=== PATIENT | female | born 1965 | race Caucasian/White ===

== ENCOUNTER 2017-01-31 19:29 | Inpatient (IN) | payer MEDICAID ==
[2016-05-15 14:09] VITALS: Ht 157.5 cm; Wt 47.8 kg
[~2017-01-31] VITALS: Ht 157.5 cm; Wt 47.8 kg
[~2017-01-31 19:29] MED LIST: ASPI-1063 PO; COR25 PO; DIVA250T PO; FURO20TA4 PO; HYDR-4039 PO; LURA40TA PO; METO-442 PO; NIFE60TA7 PO; NOR10 PO; QUET200T PO; RISP1TAB27 PO; SPIR25TA4 PO; TRAZ-126 PO; ZIPR20CA2 PO
[2017-01-31 19:30] VITALS: BP 240/154; PULSE 95; RESP 18; TEMP 97.1; O2SAT 99
--- NOTE | 2017-01-31 19:30 | NUR ---
Arrived via [facility] for HTN 218/146, SAL 8/10, vomiting x 3, diarrhea x 3, epigastric pain, bilat flank pain. Patient has been on a medication vacation for the last week because she did not care, "I didn't realize how sick I could get or that I could ." Placed in room 2 . Placed on management assistant, blood pressure machine and pulse oximeter. To gown for exam. Side rails up. Report given to Lora GARCIA.
--- NOTE | 2017-01-31 19:30 | NUR ---
Patient to ER bed 2 to gown for evaluation. Side rails up. Report given to Becky GARCIA.
--- NOTE | 2017-01-31 19:35 | NUR ---
Pt c/o 08/12 headache and "kidney pain" that radiates to the back. BP also also elevated (SBP >200). Pt noncompliant w all meds x1 week (pt supposed to be taking x4 BP meds at home). Pt also has hx of pysch issues. No acute distress noted at this time. Respirations even and unlabored. Will continue to monitor
--- NOTE | 2017-01-31 19:43 | NUR ---
ER MD Cespedes at bedside for evaluation
[2017-01-31] MEDS ORDERED: METOPROLOL TARTRATE 5 MG/5 ML VIAL IVP ONE ×3 (20:00→21:45)
[2017-01-31] MEDS ORDERED: LORazepam 2 MG/ML VIAL (FOR ER USE) IVP ONE ×2 (20:00→20:45)
[2017-01-31] MEDS ORDERED: NITROGLYCERIN 1 INCH (GM) OINT. TD ONE (20:00)
[2017-01-31] MEDS ORDERED: NITROGLYCERIN 0.4 MG TAB.SUBL SL ONE (20:00)
--- NOTE | 2017-01-31 20:00 | NUR ---
Pt refusing to give urine sample at this time.
--- NOTE | 2017-01-31 20:17 | NUR ---
Operations Superintendent at bedside for bleed draw. Patient identified x2
--- NOTE | 2017-01-31 20:20 | NUR ---
# 24 gauge angiocath placed to L hand. Use of asceptic technique. Opsite placed over site. Blood return noted. Blood for lab drawn from site. Flushed with 10 cc of normal saline. No evidence of infiltration noted. Patient tolerated well.
[2017-01-31 20:28] LABS: BASOPHILS # (AUTO) 0.1 K/uL (0.0-0.2); BASOPHILS % (AUTO) 1.7 % (0.0-2.0); EOSINOPHILS # (AUTO) 0.1 K/uL (0.0-0.4); EOSINOPHILS % (AUTO) 1.7 % (0.0-4.0); HEMATOCRIT 37.4 % (36-48); HEMOGLOBIN 12.7 g/dL (12.0-16.0); LYMPHOCYTES # (AUTO) 1.7 K/uL (1.0-5.5); LYMPHOCYTES % (AUTO) 25.2 % (20.5-51.5); MEAN CORPUSCULAR HEMOGLOBIN 28 pg (27-31); MEAN CORPUSCULAR HGB CONC 34 % (32-36); MEAN CORPUSCULAR VOLUME 81 fL (79.0-98.0); MONOCYTES # (AUTO) 0.3 K/uL (0.0-1.0); MONOCYTES % (AUTO) 4.9 % (1.7-9.3); NEUTROPHILS # (AUTO) 4.6 K/uL (1.8-7.7); NEUTROPHILS % (AUTO) 66.5 % (40.0-70.0); PLATELET COUNT (AUTO) 192 K/uL (130-430); RED BLOOD CELL COUNT(AUTO) 4.63 MIL/uL (4.2-6.2); RED CELL DISTRIBUTION WIDTH 15.4 % (9.0-15.0); WHITE BLOOD COUNT (AUTO) 6.8 K/uL (4.8-10.8)
[2017-01-31] MEDS ORDERED: VALSARTAN 80 MG TABLET (DIOVAN) PO ONE (20:45)
--- NOTE | 2017-01-31 20:50 | NUR ---
Medication reconciliation - patient states "i am no longer taking any medication" medication list already in computer has not been reconciled.
[2017-01-31] MEDS ORDERED: hydrALAZINE HCL 25 MG TABLET PO ONE (21:00)
[2017-01-31] MEDS ORDERED: hydrALAZINE HCL 25 MG TABLET ONE (21:14)
[2017-01-31] MEDS ORDERED: ZIPRASIDONE HCL 20 MG CAPSULE (GEODON) PO ONE (21:15)
[2017-01-31] MEDS ORDERED: risperiDONE 1 MG TABLET (RisperDAL) PO ONE (21:15)
[2017-01-31] MEDS ORDERED: traZODone HCL 50 MG TABLET (DESYREL) PO ONE (21:15)
[2017-01-31 21:18] LABS: CALCIUM 8.7 mg/dL (8.4-11.0); CREATININE 3.64 mg/dL (0.55-1.30); PROTHROMBIN TIME 10.5 SECS (9.5-12.5)
[2017-01-31 21:23] LABS: ALBUMIN 3.7 g/dL (3.4-4.8); TOTAL BILIRUBIN 0.8 mg/dL (0.0-1.0); TOTAL PROTEIN, SERUM 7.5 g/dL (6.4-8.3)
[2017-01-31] MEDS ORDERED: risperiDONE 1 MG TABLET (RisperDAL) ONE (21:28)
[2017-01-31] MEDS ORDERED: traZODone HCL 50 MG TABLET (DESYREL) ONE (21:29)
[2017-01-31] MEDS ORDERED: ZIPRASIDONE HCL 20 MG CAPSULE (GEODON) ONE (21:30)
[2017-01-31] MEDS ORDERED: ASPIRIN 81 MG TAB.CHEW PO ONE (21:45)
[2017-01-31] MEDS ORDERED: hydrALAZINE HCL 20 MG/ML VIAL IVP PRN (21:45)
--- NOTE | 2017-01-31 21:45 | NUR ---
Aspirin being held pending CT results.
--- NOTE | 2017-01-31 21:45 | NUR ---
Transfer to Tele Ob on hold due to increased bp. (182/123). Will continue to monitor
--- NOTE | 2017-01-31 22:15 | NUR ---
Critical lab value for troponin received. Dr Moreno notified, new orders received. Will carry out
--- NOTE | 2017-01-31 22:30 | NUR ---
Pt BP decreased, 154/100. notified, okay to transfer to Tele.
--- NOTE | 2017-01-31 22:40 | NUR ---
Patient will be admitted to care of Dr Moreno. Admitted to tele ob unit. Will go to room 126A. Summary report printed. Report given to RN. Shireen.
--- NOTE | 2017-01-31 22:43 | NUR ---
ADMISSION NOTE Received patient from ER via [facility], received report from ashlyn GARCIA given to yon GARCIA. Patient admitted with diagnosis of hypertensive emergency. Patient oriented to hospital routine, call light, toileting and safety-patient verbalized understanding.
[2017-01-31 22:46] VITALS: BP 158/100; PULSE 82; RESP 18; TEMP 97.5; O2SAT 100
--- NOTE | 2017-01-31 22:55 | NUR ---
received call from radiology. CT shows small hemorrhage, Josh also present and updated re results. New orders obtained. RADHA Iyer updated re results and new orders.
--- NOTE | 2017-01-31 23:14 | NUR ---
Consult Called Reason for consultation: Brain Hemorrhage Was consult called: Yes Person who was notified: Ashvin Consulting Physician: Mal Lima MD Conference Coordinator Specialty: Neurosurgeon Conference Coordinator Order by: Dr. Moreno
[2017-01-31] MEDS ORDERED: cloNIDine HCL 0.1 MG TABLET PO PRN (23:15)
--- NOTE | 2017-01-31 23:15 | NUR ---
Initial note A/Ox 3, sleepy but arousable, no SOB, no chest pain, c/o headache. Skin warm to touch, IV #24 at L hand, patent and free of infection or infiltration. Clear lung sound and active bowel sounds, last BM was 01/30/2017 per patient. +2 radial and pedal pulses. Informed patient to use call light for any concern or question, also use call light for bathroom. Patient is aware of urine collection. Call light within reach, bed at lowest position, bed alarm on, will continue to monitor patient.
--- NOTE | 2017-01-31 23:20 | NUR ---
Consult Called Reason for consultation: Hemorrhage ct-head Was consult called: yes Person who was notified: Pat Consulting Physician: Resendez Mohsen MD Vocational Education Professional Specialty Neurology Vocational Education Professional Phone number: [phone] Order by Efrem Montejo MD
--- NOTE | 2017-01-31 23:30 | NUR ---
MD rounds Dr. Moreno came and gave some order, order carried out Tylenol 650 mg PO Q6H PRN for mild pain and fever. Catapres 0.1 mg PO Q6H PRN for SBP >140/90 Neuro check Q2H x 4 and then Q4H Neurologist consult Neurosurgeon consult
--- NOTE | 2017-01-31 23:56 | NUR ---
Consult called Reason for consultation: psych hx, noncompliant w meds Was consult called: yes Person who was notified: Keyla Consulting Physician: Marc Hernández Md (Pratima denial resolution specialist) Consulting Specialty Psych Order by Dr. Moreno Addendum: 02/01/17 at 0039 by Viri Hurtado AK/ Tsering Tiwari denial resolution specialist.
[2017-02-01] VITALS: BP 155/108; PULSE 83; RESP 16; TEMP 97.6; O2SAT 100
--- NOTE | 2017-02-01 00:01 | NUR ---
Consult Called Reason for Consultation: hypertension Person who was notified: Keyla Consulting Physician: Alejandro Murray MD (Dr. Camacho precision devices inspector/tester) Exhibit Cleaner Specialty: Cardio Exhibit Cleaner Order by Dr. KAPOOR
--- NOTE | 2017-02-01 00:30 | NUR ---
Rounds A/O x 3, very sleepy but arousable, no SOB, no chest pain, no grimacing. VS 97.6 F, 83, 16, 155/108. Able to follow commands and move all extremities. LEILA, IV #24 at L hand, patent and free of infection or infiltration. Skin warm to touch. +2 radial and pedal pulses. Call light within reach, bed at lowest position, bed alarm on, will continue to monitor patient.
--- NOTE | 2017-02-01 00:40 | NUR ---
Catapres given due to BP 155/108
--- NOTE | 2017-02-01 01:27 | NUR ---
Call Dr. Moreno Verified with Josh that patient is Tele patient. Dr. Moreno is aware that patient had small hemorrhage in the head, and ordered neurocheck Q2 hours x 4 and then Q4 hours
--- NOTE | 2017-02-01 01:38 | NUR ---
Pharmacy called According to pharmacy, Lovenox should be given 50 mg daily, not as ordered 60 mg BID. Will endorse to morning shift to verify the Lovenox order because patient had small hemorrhage in the head.
--- NOTE | 2017-02-01 02:20 | NUR ---
Rounds Sleeping but arousable, no SOB, no chest pain, no grimacing. BP 144/88. LEILA, IV #24 at L hand. Skin warm to touch. Call light within reach, bed at lowest position, bed alarm on, will continue to monitor patient.
--- NOTE | 2017-02-01 04:32 | NUR ---
Rounds Sleeping but arousable, no SOB, no chest pain, no grimacing. BP 161/107. Hydralazine IVP given. LEILA, IV #24 at L hand. Skin warm to touch. Call light within reach, bed at lowest position, bed alarm on, will continue to monitor patient.
[2017-02-01 05:15] VITALS: BP 147/88; PULSE 78; RESP 19; TEMP 98; O2SAT 99
--- NOTE | 2017-02-01 05:25 | NUR ---
Recheck BP Patient sleeping. No SOB, no chest pain, no grimacing. BP was 147/88
--- NOTE | 2017-02-01 06:10 | NUR ---
Closing note Sleeping but arousable, no SOB, no chest pain, no grimacing. LEILA, IV #24 at L hand. Skin warm to touch. Call light within reach, bed at lowest position, bed alarm on, will give report to incoming nurse regarding verify Lovenox order and urine collection.
--- NOTE | 2017-02-01 07:30 | NUR ---
MD rounds Verified with Dr. Moreno regarding Lovenox order. Dr. Moreno DC this med.
--- NOTE | 2017-02-01 08:00 | NUR ---
AM Initial Notes Pt sound asleep. Tried to awaken by shaking but became upset and doesn't want to be bothered. States "I want to sleep. I didn't get enough rest." Encouraged to eat breakfast but sates she will eat later. No complaints of pain or discomfort. No distress noted. Call light within reach. will monitor.
[2017-02-01 08:48] VITALS: BP 151/99; PULSE 78; RESP 20; TEMP 98.5; O2SAT 99
[2017-02-01] MEDS ORDERED: ENOXAPARIN SODIUM 60 MG/0.6 ML SYRINGE SUBCUT SCH (09:00)
[2017-02-01] MEDS ORDERED: hydrALAZINE HCL 25 MG TABLET PO SCH (09:00)
[2017-02-01] MEDS ORDERED: METOPROLOL TARTRATE 50 MG TABLET PO SCH (09:00)
--- NOTE | 2017-02-01 09:00 | NUR ---
Pt still sound asleep. Will continue to monitor.
--- NOTE | 2017-02-01 10:00 | NUR ---
Rounds Pt is wide awake, alert and oriented X3 with episodes of forgetfulness. Complaints of mild headache but refused medication. No distress noted. Educated about fall and safety precautions. Encouraged to call for assistance. Call light within reach. Will monitor.
[2017-02-01] MEDS: SPIRONOLACTONE 25 MG TABLET (ALDACTONE) PO SCH ×3 (10:03→21:24)
[2017-02-01] MEDS: amLODIPine BESYLATE 10 MG TABLET PO SCH (10:04)
[2017-02-01] MEDS: FUROSEMIDE 20 MG TABLET PO SCH (10:04)
[2017-02-01] MEDS: risperiDONE 1 MG TABLET (RisperDAL) PO SCH ×2 (10:04→21:23)
[2017-02-01] MEDS: CARVEDILOL 25 MG TABLET (COREG) PO SCH ×2 (10:05→21:24)
[2017-02-01] MEDS: ZIPRASIDONE HCL 20 MG CAPSULE (GEODON) PO SCH ×2 (10:05→21:23)
[2017-02-01] MEDS: DIVALPROEX SODIUM 250 MG TAB.SR.24H (DEPAKOTE ER) PO SCH ×2 (10:06→21:25)
--- NOTE | 2017-02-01 11:00 | NUR ---
Dr. Terri HIGGINS inside room trying to assess patient. Pt is asleep but awakened by shaking. Refused to be bothered and went back to sleep.
[2017-02-01 11:31] VITALS: BP 115/70; PULSE 83; RESP 18; TEMP 98.3; O2SAT 98
--- NOTE | 2017-02-01 12:15 | NUR ---
Rounds Pt wide awake, conversing well while eating lunch. No complaints of pain or discomfort at this time. No distress noted. Encouraged to call for assistance. Call light within reach. Will monitor.
--- NOTE | 2017-02-01 12:30 | NUR ---
Dr. Terri HIGGINS inside room assessing patient. Pt wide awake and eating lunch.
--- NOTE | 2017-02-01 12:35 | NUR ---
Additional notes Pt just seen by Dr. Murray eating very well independently. MD states that patient is wide awake and seems back to normal compared to how she was earlier when he saw her sound asleep.
--- NOTE | 2017-02-01 13:30 | NUR ---
Dr. Harper Neurologist inside room assessing patient. Pt appears to be lethargic. Plan of care discussed with patient.
--- NOTE | 2017-02-01 14:30 | NUR ---
Sound asleep Pt sound asleep. No signs of facial grimacing for pain or discomfort. No distress noted. Call light within reach. Will monitor.
[2017-02-01 15:01] LABS: CREATININE 4.03 mg/dL (0.55-1.30); POTASSIUM 5.1 mmol/L (3.5-5.1); THYROID STIMULATING HORMONE 1.59 uIu/mL (0.34-4.82)
[2017-02-01 15:17] LABS: CALCIUM 7.8 mg/dL (8.4-10.2)
--- NOTE | 2017-02-01 16:24 | NUR ---
Rounds Pt asleep but awakened by shaking for medication administration. Pt got upset because she cannot get enough sleep. Also states her sleep is always interrupted. No complaints of pain or discomfort. No distress noted. Encouraged to call for assistance. will monitor.
[2017-02-01 16:35] VITALS: BP 119/79; PULSE 75; RESP 18; TEMP 97.1
--- NOTE | 2017-02-01 18:45 | NUR ---
Closing notes Pt sound asleep. No significant changes noted. Will endorse care to incoming nurse.
[2017-02-01 19:35] VITALS: BP 142/90; PULSE 79; RESP 18; TEMP 99; O2SAT 98
--- NOTE | 2017-02-01 19:35 | NUR ---
Initial Notes Pt is sleeping, easily arousable. Pt is A/OX4. Pt denies any headache or discomfort at this time. Plan of care discussed with pt, pt verbalized understanding. VSS. IV intact. Pt given snacks, pudding x2. IV to left hand #24g noted, saline lock. Breathing is even and unlabored. Pt educated phone technician light and correct back demonstration noted. Safety precautions in place, side rails up x3, with bed in lowest, locked position, bed alarm on at all times. All needs met at this time. Call light in hand. Will continue to monitor.
[2017-02-01] MEDS ORDERED: NON-FORMULARY MEDICATION (Lurasidone Hcl (Latuda) 40 MG) PO SCH (21:00)
[2017-02-01] MEDS ORDERED: traZODone HCL 50 MG TABLET (DESYREL) PO SCH (21:00)
--- NOTE | 2017-02-01 21:25 | NUR ---
Rounds All scheduled medications discussed and reviewed with pt. Pt agreed with all scheduled medications for tonight. Pt asked to call nurse when she needs to use restroom, and informed that urine sample needed. All needs met at this time. Call light in hand. Will continue to monitor.
[2017-02-01] MEDS: ACETAMINOPHEN 325 MG TABLET PO PRN (21:26)
[2017-02-02] VITALS (7 sets, daily range): BP systolic 126–161; BP diastolic 73–96; PULSE 70–82; RESP 16–18; TEMP 97–99.2; O2SAT 95–100
--- NOTE | 2017-02-02 00:20 | NUR ---
PATIENT RESTING: Patient resting quietly. No acute distress noted. Vital signs within normal range. Call light in hand. Will continue to monitor.
--- NOTE | 2017-02-02 02:49 | NUR ---
Rounds Pt is sleeping at this time, easily arousable. No acute distress or sob noted. Call light in hand. Will continue to monitor.
--- NOTE | 2017-02-02 05:02 | NUR ---
Rounds Pt is sleeping comfortably at this time. No acute distress noted. Call light in reach. Will continue to monitor.
--- NOTE | 2017-02-02 06:03 | NUR ---
Consult Follow up Called Mal Martin MD, (Eugene HIGGINS senior safety management consultant) for brain hemorrhage, spoke with Yesenia.
--- NOTE | 2017-02-02 06:07 | NUR ---
Consult follow up Paged consult for psych hx, noncompliant w meds, Dr Chen balloon dipper, spoke with Azalia.
--- NOTE | 2017-02-02 06:17 | NUR ---
Spoke with MD Knight (Neurosurgery) Spoke with MD Knight covering for Janie, and per there is nothing we can do for a brain hemorrhage and that she had already spoken with the Nurse yesterday.
--- NOTE | 2017-02-02 06:44 | NUR ---
Closing Notes Pt is sleeping comfortably at this time. No acute distress or sob noted. Pt in stable condition. VSS. IV intact. All needs met throughout shift. Will endorse care to am nurse. Call light in reach. Will continue to monitor.
--- NOTE | 2017-02-02 08:00 | NUR ---
AM Initial Notes Pt aaox3 with no complaints of headache pain or discomfort. No distress noted. States "I feel depressed and tired and just want to sleep after eating." clinical research monitor in place. Educated about fall and safety precautions. Encouraged to call for assistance. Call light within reach. Will monitor.
--- NOTE | 2017-02-02 08:15 | NUR ---
Dr. Josh HIGGINS doing rounds. Plan of care discussed with patient.
--- NOTE | 2017-02-02 08:16 | NUR ---
CALLED NEUROSURGEON DR GUZMAN, DR GOOD POUND ATTENDANT, RE: CEREBRAL HEMORRHAGE. SPOKE TO CHAGO
--- NOTE | 2017-02-02 08:22 | NUR ---
Dr. Hernández Called and spoke with for consult. MD states he will come and see the patient today.
[2017-02-02] MEDS: DIVALPROEX SODIUM 250 MG TAB.SR.24H (DEPAKOTE ER) PO SCH ×2 (08:30→20:03)
[2017-02-02] MEDS: ZIPRASIDONE HCL 20 MG CAPSULE (GEODON) PO SCH (08:31)
[2017-02-02] MEDS: FUROSEMIDE 20 MG TABLET PO SCH (08:32)
[2017-02-02] MEDS: SPIRONOLACTONE 25 MG TABLET (ALDACTONE) PO SCH ×3 (08:32→20:02)
[2017-02-02] MEDS: risperiDONE 1 MG TABLET (RisperDAL) PO SCH ×2 (08:32→20:02)
[2017-02-02] MEDS: CARVEDILOL 25 MG TABLET (COREG) PO SCH ×2 (08:33→20:02)
[2017-02-02] MEDS: amLODIPine BESYLATE 10 MG TABLET PO SCH (08:33)
--- NOTE | 2017-02-02 08:42 | NUR ---
Dr. Meredith HIGGINS doing rounds. Plan of care discussed with patient.
--- NOTE | 2017-02-02 10:00 | NUR ---
Rounds Pt awake resting in bed. No significant changes noted. Encouraged to call for assistance. Call light within reach. Will monitor.
--- NOTE | 2017-02-02 12:00 | NUR ---
Lunch Pt eating lunch. No complaints of headache or other pain and discomfort at this time. No distress noted. Encouraged to call for assistance. Call light within reach. Will monitor.
--- NOTE | 2017-02-02 14:00 | NUR ---
Rounds Pt sound asleep. No significant changes noted. Call light within reach. Will monitor.
--- NOTE | 2017-02-02 16:00 | NUR ---
Rounds Pt awake resting in bed with grand daughter at bedside. No significant changes noted. Kept comfortable. Encouraged to call for assistance. Will continue to monitor.
[2017-02-02 17:16] LABS: METHAMPHETAMINES SCREEN,URINE POSITIVE (NEG <=500)
[2017-02-02 17:17] LABS: BARBITURATE, URINE NEGATIVE (NEG <=200); BENZODIAZEPINE, URINE POSITIVE (NEG <=150); CANNABINOID, URINE NEGATIVE (NEG <=50); COCAINE, URINE NEGATIVE (NEG <=150); OPIATE, URINE NEGATIVE (NEG <=100); PHENCYCLIDINE SCREEN,URINE NEGATIVE (NEG <=25); UR TRICYCLIC ANTIDEPRESSANTS NEGATIVE (NEG <=300); URINE AMPHETAMINE POSITIVE (NEG <=500); URINE METHADONE NEGATIVE (NEG <=200); URINE OXYCODONE SCREEN NEGATIVE (NEG <=100); URINE PROPOXYPHENE SCREEN NEGATIVE (NEG <=300)
--- NOTE | 2017-02-02 19:35 | NUR ---
Initial Notes Pt is awake, sitting up in bed watching TV. Pt is A/OX4. Pt c/o mild headache, will medicate for pain as ordered. Plan of care discussed with pt, pt verbalized understanding. Pt informed of planned MRI for tomorrow but patient stated she did not want to have the MRI and just wants to go home. VSS. IV intact. Pt given snacks, pudding x2. IV to left hand #24g noted, saline lock. Breathing is even and unlabored. Pt educated educational sign language interpreter light and correct back demonstration noted. Safety precautions in place, side rails up x3, with bed in lowest, locked position, bed alarm on at all times. All needs met at this time. Call light in hand. Will continue to monitor.
[2017-02-02] MEDS: traZODone HCL 50 MG TABLET (DESYREL) PO SCH (20:02)
[2017-02-02] MEDS: ACETAMINOPHEN 325 MG TABLET PO PRN (20:04)
--- NOTE | 2017-02-02 23:50 | NUR ---
Rounds Pt is sleeping at this time, easily arousable. No acute distress or sob noted. Call light in hand. Will continue to monitor.
--- NOTE | 2017-02-03 01:37 | NUR ---
Rounds Pt is sleeping at this time, easily arousable. No acute distress or sob noted. Call light in hand. Will continue to monitor.
[2017-02-03 04:01] VITALS: BP 135/93; PULSE 74; RESP 16; TEMP 97.6; O2SAT 98
--- NOTE | 2017-02-03 04:35 | NUR ---
PATIENT RESTING: Patient resting quietly. No acute distress noted. Vital signs within normal range. Call light in reach. Will continue to monitor.
[2017-02-03 08:00] VITALS: BP 137/95; PULSE 63; RESP 16; TEMP 97.3; O2SAT 99
--- NOTE | 2017-02-03 08:00 | NUR ---
INITIAL ROUNDS Received pt AAOx4, no s/s resp distress, no c/o pain or discomfort. Neuro check completed and intact, pt ambulatory with steady gait when walked to bathroom. Plan of care for the day reviewed with pt-pt verbalized her understanding and wants to go home. Discussed need for MRI today and procedure-pt stated she will do the MRI-per shift report pt was refusing MRI. Pain management, disease process, skin and safety discussed-teach back done. Contact phone explained, call light within reach.
[2017-02-03] MEDS: ZIPRASIDONE HCL 20 MG CAPSULE (GEODON) PO SCH (08:39)
[2017-02-03] MEDS: CARVEDILOL 25 MG TABLET (COREG) PO SCH ×2 (08:39→20:19)
[2017-02-03] MEDS: SPIRONOLACTONE 25 MG TABLET (ALDACTONE) PO SCH ×3 (08:40→20:18)
[2017-02-03] MEDS: amLODIPine BESYLATE 10 MG TABLET PO SCH (08:40)
[2017-02-03] MEDS: DIVALPROEX SODIUM 250 MG TAB.SR.24H (DEPAKOTE ER) PO SCH ×2 (08:40→20:17)
[2017-02-03] MEDS: FUROSEMIDE 20 MG TABLET PO SCH (08:41)
--- NOTE | 2017-02-03 09:43 | NUR ---
REFUSED MRI Need for MRI and procedure explained by both this RN and the electronic calibration technician-pt still refused. Will inform .
[2017-02-03 12:00] VITALS: BP 130/78; PULSE 74; RESP 18; TEMP 98.6; O2SAT 98
--- NOTE | 2017-02-03 12:30 | NUR ---
MD ALMARAZ-AMA Pt is demanding to be discharged. Pt informed that the doctor wanted her to see a Customer Account Coordinator-pt stated "no, I want to leave. Dr. Sb almaraz, awaiting call back.
--- NOTE | 2017-02-03 12:49 | NUR ---
SPOKE WITH MD Dr. Basurto informed that pt just came up to nursing station and demanded to leave and stated she wants to go home against medical advise. stated to tell her he does not recommend her leaving.
--- NOTE | 2017-02-03 14:05 | NUR ---
ROUNDS/STAYING Pt decided to stay and get the tests done. Will inform MD. Pt with no s/s resp distress, no c/o pain or discomfort. Pt ambulating in the hallway. Pt given vanilla pudding per request. Needs met, call light within reach.
[2017-02-03 16:00] VITALS: BP 146/76; PULSE 76; RESP 18; TEMP 97.5; O2SAT 98
--- NOTE | 2017-02-03 16:40 | NUR ---
RAIZA/ Pt resting quietly in bed with no c/o headache or dizziness. Neuro checks intact. Pt's BP elevated-pt given BP medication as ordered. Dr. Basurto informed that pt is now agreeable to the MRI-order for tomorrow given.
--- NOTE | 2017-02-03 18:30 | NUR ---
CLOSING ROUNDS Pt resting quietly in bed with no s/s resp distress, no c/o headache or dizziness, no c/o pain or discomfort. Pt seen by Dr. Sellers-he stated that the pt will have to set up hemodialysis as an outpatient. Needs met, call light within reach.
[2017-02-03 20:00] VITALS: BP 154/100; PULSE 76; RESP 18; TEMP 98; O2SAT 98
--- NOTE | 2017-02-03 20:00 | NUR ---
Initial note Lying in bed awake, alert & oriented x 4. Denies pain or discomfort. Left hand IV access intact & patent. Able to ambulate without assist. Instructed on use of call light & to notify staff if in need of assistance. Verbalized understanding. Call light within reach.
[2017-02-03] MEDS: traZODone HCL 50 MG TABLET (DESYREL) PO SCH (20:19)
[2017-02-03] MEDS: risperiDONE 1 MG TABLET (RisperDAL) PO SCH (20:19)
[2017-02-03] MEDS: ACETAMINOPHEN 325 MG TABLET PO PRN (20:19)
--- NOTE | 2017-02-03 20:21 | NUR ---
Medications Due po medications given as ordered. Tolerated well.
--- NOTE | 2017-02-03 20:22 | NUR ---
Pain C/o headache rated 3/10. Tylenol po given as ordered.
--- NOTE | 2017-02-03 21:43 | NUR ---
MD ALMARAZ CALLED [facility] AT SPOKE WITH DR.JANDIAL HUDSON [facility] HE[facility] WORKER.
--- NOTE | 2017-02-03 21:48 | NUR ---
Sleep medication Requested sleeping pill. Explained medications administered earlier will make her sleepy, stated it doesn't. paged, Dr. patiño called back with new order given. Will medicate as ordered.
[2017-02-03 23:40] VITALS: BP 137/86; PULSE 69; RESP 18; TEMP 98.2
[2017-02-03] MEDS ORDERED: TEMAZEPAM 15 MG CAPSULE ONE (23:40)
--- NOTE | 2017-02-04 01:00 | NUR ---
Rounds Resting quietly with eyes closed. No c/o pain or discomfort. Call light within reach.
--- NOTE | 2017-02-04 02:49 | NUR ---
Rounds Used call light to ask for orange juice. [place] juice given. Went back to sleep.
--- NOTE | 2017-02-04 07:00 | NUR ---
Closing note Resting in bed awake, alert & oriented x 4. No c/o pain or discomfort. Ambulated in hallway with steady gait. Reminded of MRI and stated she was willing to do it. Call light within reach. Will give report to RADHA Allen via [employer] method.
--- NOTE | 2017-02-04 07:47 | NUR ---
OPENING NOTE REPORT RECEIVED FROM RADHA FRENCH. PATIENT IS SLEEPING, CALM. NO SIGNS OF DISTRESS. PATIENT DENIES HEADACHE AT THIS TIME, VITALS ARE STABLE. MRI SCHEDULED FOR TODAY, PATIENT AGREES TO GO TO MRI.
[2017-02-04 08:00] VITALS: BP 132/79; PULSE 71; RESP 16; TEMP 99.1; O2SAT 98
[2017-02-04] MEDS: DIVALPROEX SODIUM 250 MG TAB.SR.24H (DEPAKOTE ER) PO SCH (08:51)
[2017-02-04] MEDS: FUROSEMIDE 20 MG TABLET PO SCH (08:51)
[2017-02-04] MEDS: CARVEDILOL 25 MG TABLET (COREG) PO SCH (08:52)
[2017-02-04] MEDS: SPIRONOLACTONE 25 MG TABLET (ALDACTONE) PO SCH ×2 (08:52→15:16)
[2017-02-04] MEDS: amLODIPine BESYLATE 10 MG TABLET PO SCH (08:52)
[2017-02-04] MEDS: ZIPRASIDONE HCL 20 MG CAPSULE (GEODON) PO SCH (08:52)
--- NOTE | 2017-02-04 09:15 | NUR ---
RECEIVED PHONE CALL FROM PATIENT'S MOTHER WHO STATED SHE HAD TOLD HER DAUGHTER TO STAY IN THE HOSPITAL TO GET ALL OF HER TESTING DONE. SHE ALSO STATES SHE WILL NOT BE AVAILABLE TO PICK PATIENT UP UNTIL AFTER 4PM TODAY.
--- NOTE | 2017-02-04 09:28 | NUR ---
DR NICHOLSON IN TO SEE PATIENT. STATES ELEVATED TROPONIN IS SECOND TO RENAL FAILURE AND THAT FROM CARDIO STANDPOINT PATIENT MAY BE DISCHARGED HOME
--- NOTE | 2017-02-04 10:30 | NUR ---
PATIENT TAKEN TO MRI VIA W/C
--- NOTE | 2017-02-04 11:00 | NUR ---
PATIENT RETURNED FROM MRI VIA W/C
[2017-02-04 11:22] VITALS: BP 147/78; PULSE 67; RESP 16; TEMP 98.3; O2SAT 94
--- NOTE | 2017-02-04 12:05 | NUR ---
DR TEJEDA IN TO SEE PATIENT. DC HOME ORDERS GIVEN.
--- NOTE | 2017-02-04 14:04 | NUR ---
patient is resting. informed her that her mother would be by this afternoon to take her home
[2017-02-04 14:36] VITALS: BP 147/78; PULSE 86; RESP 18; TEMP 98.7; O2SAT 95
[2017-02-04 15:25] VITALS: BP 109/61; PULSE 70; RESP 16; TEMP 97.1; O2SAT 95
--- NOTE | 2017-02-04 15:50 | NUR ---
IV DC'D AND PRESSURE DRESSING APPLIED. PT MEDICATED PER ORDERS. ALL DC PAPERWORK AND FOLLOW UP CARE DISCUSSED WITH PATIENT. PT SIGNED DC PAPERWORK AND VERBALIZED UNDERSTANDING. PT WAS ASKING ABOUT PRESCRIPTIONS BUT THERE WERE NO PRESCRIPTIONS WRITTEN. PATIENT TAKEN TO [facility] VIA W/C. ALL BELONGINGS ACCOUNTED FOR AND SENT HOME WITH PATIENT.
[2017-02-04] MEDS ORDERED: TEMAZEPAM 15 MG CAPSULE PO SCH (21:00)
== END 2017-02-04 15:25 | disposition home or self-care (01) | DRG 194 ==
LOC: SED 19:29 → STU 21:35 → SMU 02-03 13:29
DX: I13.0 Hypertensive heart and chronic kidney disease with heart failure and stage 1 through stage 4 chronic kidney disease, or unspecified chronic kidney disease (principal); I61.3 Nontraumatic intracerebral hemorrhage in brain stem; T43.621A Poisoning by amphetamines, accidental (unintentional), initial encounter; I16.0 Hypertensive urgency; F17.210 Nicotine dependence, cigarettes, uncomplicated; N17.9 Acute kidney failure, unspecified; F25.0 Schizoaffective disorder, bipolar type; I50.42 Chronic combined systolic (congestive) and diastolic (congestive) heart failure; N18.5 Chronic kidney disease, stage 5; G89.4 Chronic pain syndrome; F15.10 Other stimulant abuse, uncomplicated; Z91.14 Patient's other noncompliance with medication regimen; Z79.899 Other long term (current) drug therapy; Z79.82 Long term (current) use of aspirin; Y92.89 Other specified places as the place of occurrence of the external cause; Z71.51 Drug abuse counseling and surveillance of drug abuser; Z86.73 Personal history of transient ischemic attack (TIA), and cerebral infarction without residual deficits
CPT/HCPCS: 36415; 70450-TC; 70551; 71010; 80053; 80069; 80164-TC; 80307; 82140-TC; 82607; 83880; 83921; 84443-TC; 84484; 85025; 85610-TC; 93005; 93306; 95816; 96374; 96375; 96376; 99285; J0360; J2060; J3490

== ENCOUNTER 2017-02-16 18:23 | Emergency (ER) | payer MEDICAID ==
[~2017-02-16] VITALS: Ht 152.4 cm; Wt 47.6 kg
[~2017-02-16 18:23] MED LIST changes: -ASPI-1063 PO; -NIFE60TA7 PO; -QUET200T PO
[2017-02-16] MEDS ORDERED: NACL 0.9% 1,000 ML IV ONE (18:28)
[2017-02-16] MEDS ORDERED: METOPROLOL TARTRATE 5 MG/5 ML VIAL IVP ONE (18:30)
[2017-02-16] MEDS ORDERED: ASPIRIN 81 MG TAB.CHEW PO ONE (18:30)
[2017-02-16 18:51] LABS: BASOPHILS # (AUTO) 0.1 K/uL (0.0-0.2); BASOPHILS % (AUTO) 0.9 % (0.0-2.0); EOSINOPHILS # (AUTO) 0.1 K/uL (0.0-0.4); HEMATOCRIT 25.9 % (36-48); HEMOGLOBIN 8.5 g/dL (12.0-16.0); LYMPHOCYTES # (AUTO) 1.8 K/uL (1.0-5.5); LYMPHOCYTES % (AUTO) 26.7 % (20.5-51.5); MEAN CORPUSCULAR HEMOGLOBIN 27 pg (27-31); MEAN CORPUSCULAR HGB CONC 33 % (32-36); MEAN CORPUSCULAR VOLUME 83 fL (79.0-98.0); MONOCYTES # (AUTO) 0.4 K/uL (0.0-1.0); MONOCYTES % (AUTO) 5.8 % (1.7-9.3); NEUTROPHILS # (AUTO) 4.2 K/uL (1.8-7.7); NEUTROPHILS % (AUTO) 64.6 % (40.0-70.0); PLATELET COUNT (AUTO) 259 K/uL (130-430); RED BLOOD CELL COUNT(AUTO) 3.12 MIL/uL (4.2-6.2); RED CELL DISTRIBUTION WIDTH 14.9 % (9.0-15.0); WHITE BLOOD COUNT (AUTO) 6.6 K/uL (4.8-10.8)
[2017-02-16 18:57] LABS: CALCIUM 8.1 mg/dL (8.4-11.0); CREATININE 4.67 mg/dL (0.55-1.30); POTASSIUM 5.2 mmol/L (3.5-5.1)
[2017-02-16 18:59] LABS: PROTHROMBIN TIME 10.9 SECS (9.5-12.5)
[2017-02-16 19:01] LABS: ALBUMIN 3.2 g/dL (3.4-4.8); TOTAL BILIRUBIN 0.4 mg/dL (0.0-1.0); TOTAL PROTEIN, SERUM 6.8 g/dL (6.4-8.3)
[2017-02-16 19:48] LABS: BILIRUBIN,URINE NEGATIVE (NEGATIVE); CLARITY/URINE CLEAR (CLEAR); COLOR,URINE YELLOW (YELLOW); GLUCOSE,URINE NEGATIVE (NEGATIVE); KETONES,URINE NEGATIVE (NEGATIVE); LEUKOCYTE ESTERASE ,URINE 3+ (NEGATIVE); NITRITE, URINE NEGATIVE (NEGATIVE); PROTEIN URINE 2+ (NEGATIVE); UROBILINOGEN,URINE 0.2 (0.2-1.0)
[2017-02-16] MEDS ORDERED: hydrALAZINE HCL 20 MG/ML VIAL IVP ONE ×2 (20:00→21:45)
[2017-02-16] MEDS ORDERED: cloNIDine HCL 0.1 MG TABLET PO ONE (20:00)
[2017-02-16 20:07] LABS: BLOOD, URINE TRACE (NEGATIVE)
[2017-02-16 20:13] LABS: BACTERIA,URINE MODERATE /HPF (None Seen); WBC,URINE 20-50 /HPF (0-3)
[2017-02-16] MEDS ORDERED: LORazepam 1 MG TABLET PO ONE (20:30)
[2017-02-16 23:09] VITALS: BP_SYST 152
[2017-02-17] MEDS ORDERED: cloNIDine HCL 0.1 MG TABLET ONE (03:46)
== END 2017-02-16 23:10 ==
LOC: SED 18:23
DX: I12.9 Hypertensive chronic kidney disease with stage 1 through stage 4 chronic kidney disease, or unspecified chronic kidney disease (principal); N18.9 Chronic kidney disease, unspecified; F20.9 Schizophrenia, unspecified; R45.851 Suicidal ideations; R51 Headache; Z86.73 Personal history of transient ischemic attack (TIA), and cerebral infarction without residual deficits; Z79.899 Other long term (current) drug therapy
CPT/HCPCS: 36415; 70450; 71010; 80053; 81000; 82150; 82550; 83690; 84484; 85025; 85610; 85730; 87086; 93005; 96361; 96374; 96375; 96376; 99285; J0360; J3490; J7030

== ENCOUNTER 2017-02-16 23:52 | Emergency (ER) | payer MEDICAID ==
[2016-05-15 14:09] VITALS: Ht 160 cm; Wt 54.4 kg
[~2017-02-16] VITALS: Ht 160 cm; Wt 54.4 kg
[~2017-02-16 23:52] MED LIST changes: +ASPI-1063 PO; +NIFE60TA7 PO; +QUET200T PO
[2017-02-17 00:02] VITALS: BP 187/109; PULSE 76; RESP 16; TEMP 98; O2SAT 100
--- NOTE | 2017-02-17 00:02 | NUR ---
Patient to ER bed 5 to gown for evaluation. Side rails up.
--- NOTE | 2017-02-17 00:12 | NUR ---
Pt in bed 5 with c/o HTN, is from Paul Castañeda. Pt's caregiver at bedside. Dr Montilla aware.
--- NOTE | 2017-02-17 00:13 | NUR ---
ER at bedside examining patient.
[2017-02-17] MEDS ORDERED: cloNIDine HCL 0.1 MG TABLET PO ONE ×3 (00:15→03:45)
[2017-02-17] MEDS ORDERED: LORazepam 1 MG TABLET PO ONE ×2 (00:15→03:00)
[2017-02-17] MEDS ORDERED: amLODIPine BESYLATE 10 MG TABLET PO ONE (00:15)
[2017-02-17] MEDS ORDERED: METOPROLOL TARTRATE 25 MG TABLET PO ONE (00:15)
--- NOTE | 2017-02-17 00:45 | NUR ---
Medication given as per MD orders Tolerated well.
--- NOTE | 2017-02-17 01:00 | NUR ---
Patient resting quietly. No acute distress noted.
--- NOTE | 2017-02-17 02:06 | NUR ---
medication given as per MD orders. tolerated well.
--- NOTE | 2017-02-17 03:46 | NUR ---
bp 144/90 verbal report given to Darlene GARCIA at [facility] . Patient given written and verbal discharge instructions and verbalizes understanding. ER MD discussed with patient the results and treatment provided. Given copies of tests performed in ER. Patient in stable condition. ID arm band removed. Rx of lopressor,hydrazaline, norvasc given. Patient educated on pain management and to follow up with PMD. Pain Scale 0/10.transported to [facility] via ambulance. Opportunity for questions provided and answered.
[2017-02-17 03:51] VITALS: BP 144/90; PULSE 66; RESP 20; TEMP 97.5; O2SAT 100
== END 2017-02-17 03:46 ==
LOC: SED 23:52
DX: I16.0 Hypertensive urgency (principal); I25.10 Atherosclerotic heart disease of native coronary artery without angina pectoris; F20.9 Schizophrenia, unspecified
CPT/HCPCS: 99285

== ENCOUNTER 2017-03-07 17:08 | Emergency (ER) | payer MEDICAID ==
[~2017-03-07] VITALS: Ht 152.4 cm; Wt 47.6 kg
[~2017-03-07 17:08] MED LIST changes: -ASPI-1063 PO; -NIFE60TA7 PO; -QUET200T PO
[2017-03-07 17:10] VITALS: BP_SYST 149
[2017-03-07] MEDS ORDERED: BACITRACIN 1 GM OINT TP ONE (17:15)
[2017-03-07] MEDS ORDERED: LIDOCAINE 1% 10 MG/ML, 20 ML MDV IJ ONE (17:15)
[2017-03-07] MEDS ORDERED: IBUPROFEN 600 MG TABLET PO ONE (17:15)
[2017-03-07] MEDS ORDERED: DIPH-TET-PERTUS Vaccine 0.5 ML VIAL (ADACEL) IM ONE (17:15)
[2017-03-07] MEDS ORDERED: HYDROcodone/ACETAMIN 5-325 MG TAB (NORCO/ VICODIN) PO ONE (18:45)
[2017-03-07] MEDS ORDERED: ONDANSETRON 4 MG ODT TAB PO ONE (18:45)
[2017-03-07] MEDS ORDERED: AMOXICILLIN/CLAVULANATE POTASSIUM 875 MG TABLET PO ONE (18:45)
[2017-03-07 19:37] VITALS: BP_SYST 123
== END 2017-03-07 19:21 | disposition home or self-care (01) ==
LOC: SED 17:08
DX: S62.615A Displaced fracture of proximal phalanx of left ring finger, initial encounter for closed fracture (principal); S61.213A Laceration without foreign body of left middle finger without damage to nail, initial encounter; S61.215A Laceration without foreign body of left ring finger without damage to nail, initial encounter; W10.9XXA Fall (on) (from) unspecified stairs and steps, initial encounter; Y93.89 Activity, other specified; Y92.89 Other specified places as the place of occurrence of the external cause; Y99.8 Other external cause status; Z86.73 Personal history of transient ischemic attack (TIA), and cerebral infarction without residual deficits; I10 Essential (primary) hypertension; F20.9 Schizophrenia, unspecified
CPT/HCPCS: 12001; 73130; 90471; 90715; 99284; J2001

== ENCOUNTER 2017-03-11 20:05 | Inpatient (IN) | payer MEDICAID ==
[~2017-03-11] VITALS: Ht 157.5 cm; Wt 57.2 kg
[2017-03-11 20:05] VITALS: BP_SYST 143
[2017-03-11 21:08] LABS: BASOPHILS % (AUTO) 0.3 % (0.0-2.0); EOSINOPHILS # (AUTO) 0.3 K/uL (0.0-0.4); EOSINOPHILS % (AUTO) 3.2 % (0.0-4.0); HEMOGLOBIN 8.4 g/dL (12.0-16.0); LYMPHOCYTES # (AUTO) 1.5 K/uL (1.0-5.5); MEAN CORPUSCULAR HEMOGLOBIN 28 pg (27-31); MEAN CORPUSCULAR HGB CONC 32 % (32-36); MEAN CORPUSCULAR VOLUME 86 fL (79.0-98.0); MONOCYTES # (AUTO) 0.4 K/uL (0.0-1.0); MONOCYTES % (AUTO) 5.1 % (1.7-9.3); NEUTROPHILS # (AUTO) 6.4 K/uL (1.8-7.7); NEUTROPHILS % (AUTO) 73.4 % (40.0-70.0); PLATELET COUNT (AUTO) 291 K/uL (130-430); RED BLOOD CELL COUNT(AUTO) 3.04 MIL/uL (4.2-6.2); RED CELL DISTRIBUTION WIDTH 13.4 % (9.0-15.0); WHITE BLOOD COUNT (AUTO) 8.6 K/uL (4.8-10.8)
[2017-03-11 21:21] LABS: ANION GAP 6 (5-15); CALCIUM 8.6 mg/dL (8.4-11.0); CHLORIDE 107 mmol/L (98-107); CREATININE 5.08 mg/dL (0.55-1.30); GLUCOSE 104 mg/dL (70-99); SODIUM SERUM 133 mmol/L (136-145); UREA NITROGEN, BLOOD 77 mg/dL (8-21)
[2017-03-11 21:23] LABS: INR 0.9 (0.8-1.2)
[2017-03-11 21:25] LABS: ALANINE AMINOTRANSFERASE 14 U/L (12-78); ALBUMIN 3.9 g/dL (3.4-4.8); ASPARTATE AMINOTRANSFERASE 21 U/L (10-37); CREATINE KINASE, TOTAL 199 U/L (26-192); SALICYLATE 3 mg/dL (3-30); TOTAL BILIRUBIN 0.4 mg/dL (0.0-1.0); TOTAL PROTEIN, SERUM 7.6 g/dL (6.4-8.3)
[2017-03-11 21:30] LABS: GFR AFRICAN AMERICAN 12 mL/min (>90)
[2017-03-11 21:31] LABS: ACETAMINOPHEN < 1 ug/mL (1-30); ALCOHOL, BLOOD < 3 mg/dL (<10)
[2017-03-11 21:33] LABS: POTASSIUM 6.7 mmol/L (3.5-5.1)
[2017-03-11] MEDS ORDERED: DEXTROSE 50% JECT 50 ML DISP.SYRIN IVP ONE (21:45)
[2017-03-11] MEDS ORDERED: SODIUM POLYSTYRENE SULFONATE 15 GM/60 ML UDBTL PO ONE (21:45)
[2017-03-11] MEDS ORDERED: CALCIUM GLUCONATE 1 GM/10 ML VIAL IVP ONE (21:45)
[2017-03-11] MEDS ORDERED: INSULIN REGULAR, HUMAN 10 UNITS/0.1 ML INJ IVP ONE (21:45)
[2017-03-11] MEDS ORDERED: SODIUM BICARBONATE 8.4% JECT 50 MEQ/50 ML SYRINGE IVP ONE (21:45)
[2017-03-11 21:55] LABS: CKMB RELATIVE INDEX 2.4 (0.0-2.9); CREATINE KINASE MB 4.8 ng/mL (0-3.6)
[2017-03-11] MEDS ORDERED: MORPHINE 4 MG/ML INJ. SYRINGE IVP ONE (23:45)
[2017-03-11 23:50] LABS: BILIRUBIN,URINE NEGATIVE (NEGATIVE); CLARITY/URINE CLEAR (CLEAR); COLOR,URINE YELLOW (YELLOW); GLUCOSE,URINE NEGATIVE (NEGATIVE); KETONES,URINE NEGATIVE (NEGATIVE); LEUKOCYTE ESTERASE ,URINE NEGATIVE (NEGATIVE); NITRITE, URINE NEGATIVE (NEGATIVE); PH,URINE 6.5 (5.0-8.0); PROTEIN URINE 1+ (NEGATIVE); UROBILINOGEN,URINE 0.2 (0.2-1.0)
[2017-03-11 23:58] LABS: BARBITURATE, URINE NEGATIVE (NEG <=200); BENZODIAZEPINE, URINE POSITIVE (NEG <=150); CANNABINOID, URINE NEGATIVE (NEG <=50); COCAINE, URINE NEGATIVE (NEG <=150); METHAMPHETAMINES SCREEN,URINE NEGATIVE (NEG <=500); OPIATE, URINE POSITIVE (NEG <=100); PHENCYCLIDINE SCREEN,URINE NEGATIVE (NEG <=25); URINE AMPHETAMINE NEGATIVE (NEG <=500); URINE METHADONE NEGATIVE (NEG <=200)
[2017-03-11 23:59] LABS: UR TRICYCLIC ANTIDEPRESSANTS NEGATIVE (NEG <=300); URINE OXYCODONE SCREEN NEGATIVE (NEG <=100); URINE PROPOXYPHENE SCREEN NEGATIVE (NEG <=300)
[2017-03-12] MEDS ORDERED: NACL 0.9% 1,000 ML IV ONE
[2017-03-12 00:02] LABS: BLOOD, URINE TRACE (NEGATIVE)
[2017-03-12 00:21] LABS: BACTERIA,URINE FEW /HPF (None Seen); MUCUS,URINE None Seen /LPF (None Seen); RBC,URINE 0-3 /HPF (0-3)
[2017-03-12 00:35] VITALS: BP_SYST 168
[2017-03-12] MEDS ORDERED: ONDANSETRON HCL 4 MG/2 ML VIAL IVP ONE (02:00)
[2017-03-12] MEDS: ACETAMINOPHEN 325 MG TABLET PO PRN ×4 (02:18→20:34)
[2017-03-12 05:04] VITALS: BP_SYST 142
[2017-03-12] MEDS ORDERED: ONDANSETRON HCL 4 MG/2 ML VIAL IVP PRN (06:15)
[2017-03-12 06:32] LABS: ALBUMIN 3.4 g/dL (3.4-4.8); CALCIUM 7.9 mg/dL (8.4-11.0); CREATININE 4.52 mg/dL (0.55-1.30); POTASSIUM 4.9 mmol/L (3.5-5.1); TOTAL BILIRUBIN 0.3 mg/dL (0.0-1.0); TOTAL PROTEIN, SERUM 6.2 g/dL (6.4-8.3)
[2017-03-12 08:00] VITALS: BP_SYST 115
[2017-03-12 08:21] LABS: IRON (SERUM) 82 mcg/dL (37-145); TOTAL IRON BIND. CAPACITY 337 ug/dL (250-450)
[2017-03-12] MEDS: PANTOPRAZOLE SODIUM 40 MG TAB PO SCH (09:16)
[2017-03-12 11:21] VITALS: BP_SYST 131
[2017-03-12 16:00] VITALS: BP_SYST 119
[2017-03-12] MEDS: traZODone HCL 50 MG TABLET (DESYREL) PO SCH (20:35)
[2017-03-12] MEDS: ZIPRASIDONE HCL 20 MG CAPSULE (GEODON) PO SCH (20:35)
[2017-03-12] MEDS: DIVALPROEX SODIUM 500 MG TAB.SR.24H (DEPAKOTE ER) PO SCH (20:36)
[2017-03-12] MEDS ORDERED: risperiDONE 1 MG TABLET (RisperDAL) PO SCH (21:00)
[2017-03-12] MEDS ORDERED: ZIPRASIDONE HCL 20 MG CAPSULE (GEODON) PO SCH (21:00)
[2017-03-13] VITALS (7 sets, daily range): BP systolic 133–177
[2017-03-13] MEDS: ACETAMINOPHEN 325 MG TABLET PO PRN ×2 (02:26→09:58)
[2017-03-13 06:27] LABS: CALCIUM 7.9 mg/dL (8.4-11.0); CREATININE 4.27 mg/dL (0.55-1.30); POTASSIUM 5.3 mmol/L (3.5-5.1); TOTAL BILIRUBIN 0.3 mg/dL (0.0-1.0); TOTAL PROTEIN, SERUM 6.2 g/dL (6.4-8.3)
[2017-03-13] MEDS ORDERED: IBUPROFEN 400 MG TABLET PO ONE (06:30)
[2017-03-13 06:59] LABS: BASOPHILS % (AUTO) 0.4 % (0.0-2.0); EOSINOPHILS # (AUTO) 0.2 K/uL (0.0-0.4); EOSINOPHILS % (AUTO) 3.2 % (0.0-4.0); HEMOGLOBIN 7.1 g/dL (12.0-16.0); LYMPHOCYTES # (AUTO) 1.4 K/uL (1.0-5.5); LYMPHOCYTES % (AUTO) 21.4 % (20.5-51.5); MEAN CORPUSCULAR HEMOGLOBIN 28 pg (27-31); MEAN CORPUSCULAR HGB CONC 33 % (32-36); MEAN CORPUSCULAR VOLUME 87 fL (79.0-98.0); MONOCYTES # (AUTO) 0.4 K/uL (0.0-1.0); MONOCYTES % (AUTO) 6.7 % (1.7-9.3); NEUTROPHILS # (AUTO) 4.4 K/uL (1.8-7.7); NEUTROPHILS % (AUTO) 68.3 % (40.0-70.0); PLATELET COUNT (AUTO) 224 K/uL (130-430); RED BLOOD CELL COUNT(AUTO) 2.52 MIL/uL (4.2-6.2); RED CELL DISTRIBUTION WIDTH 13.5 % (9.0-15.0); WHITE BLOOD COUNT (AUTO) 6.4 K/uL (4.8-10.8)
[2017-03-13 07:09] LABS: HEMATOCRIT 21.9 % (36-48)
[2017-03-13] MEDS: PANTOPRAZOLE SODIUM 40 MG TAB PO SCH (08:56)
[2017-03-13] MEDS: DIVALPROEX SODIUM 500 MG TAB.SR.24H (DEPAKOTE ER) PO SCH ×2 (08:57→21:40)
[2017-03-13] MEDS: amLODIPine BESYLATE 10 MG TABLET PO SCH (08:58)
[2017-03-13] MEDS: ZIPRASIDONE HCL 20 MG CAPSULE (GEODON) PO SCH ×2 (09:57→21:40)
[2017-03-13] MEDS ORDERED: EPOETIN ALFA 20,000 UNITS/ML VIAL SUBCUT ONE (11:00)
[2017-03-13] MEDS ORDERED: SODIUM POLYSTYRENE SULFONATE 15 GM/60 ML UDBTL PO ONE (11:00)
[2017-03-13] MEDS: BACITRACIN/POLYMYXIN B SULFATE 30 GM TOPICAL OINT. TP SCH (12:53)
[2017-03-13] MEDS ORDERED: SOD FERRIC GLUC COMPLEX/SUC 125 MG in NS 100 ML IV ONE (13:00)
[2017-03-13 13:09] LABS: FOLATE (FOLIC ACID) >20.0 ng/mL (>3.0)
[2017-03-13] MEDS: HYDROcodone/ACETAMIN 5-325 MG TAB (NORCO/ VICODIN) PO PRN (15:39)
[2017-03-13] MEDS: traZODone HCL 50 MG TABLET (DESYREL) PO SCH (21:40)
[2017-03-14] MEDS: cloNIDine HCL 0.1 MG TABLET PO PRN (00:35)
[2017-03-14 04:01] VITALS: BP_SYST 149
[2017-03-14] MEDS: HYDROcodone/ACETAMIN 5-325 MG TAB (NORCO/ VICODIN) PO PRN ×2 (04:10→12:46)
[2017-03-14 06:36] LABS: CALCIUM 8.8 mg/dL (8.4-11.0); CREATININE 3.66 mg/dL (0.55-1.30); POTASSIUM 4.9 mmol/L (3.5-5.1)
[2017-03-14 07:41] VITALS: BP_SYST 145
[2017-03-14] MEDS: DIVALPROEX SODIUM 500 MG TAB.SR.24H (DEPAKOTE ER) PO SCH ×2 (09:17→20:36)
[2017-03-14] MEDS: amLODIPine BESYLATE 10 MG TABLET PO SCH (09:18)
[2017-03-14] MEDS: ZIPRASIDONE HCL 20 MG CAPSULE (GEODON) PO SCH ×2 (09:18→20:35)
[2017-03-14] MEDS: PANTOPRAZOLE SODIUM 40 MG TAB PO SCH (09:18)
[2017-03-14] MEDS: BACITRACIN/POLYMYXIN B SULFATE 30 GM TOPICAL OINT. TP SCH (09:18)
[2017-03-14 11:43] VITALS: BP_SYST 165
[2017-03-14] MEDS ORDERED: hydrALAZINE HCL 25 MG TABLET PO ONE (12:45)
[2017-03-14] MEDS ORDERED: hydrALAZINE HCL 25 MG TABLET PO SCH ×3 (15:00→21:00)
[2017-03-14 16:46] VITALS: BP_SYST 159
[2017-03-14 19:30] VITALS: BP_SYST 155
[2017-03-14] MEDS: traZODone HCL 50 MG TABLET (DESYREL) PO SCH (20:36)
[2017-03-14] MEDS: METOPROLOL TARTRATE 50 MG TABLET PO SCH (20:37)
[2017-03-14] MEDS ORDERED: METOPROLOL TARTRATE 50 MG TABLET PO SCH (21:00)
[2017-03-15 00:15] VITALS: BP_SYST 159
[2017-03-15 06:00] VITALS: BP_SYST 165
[2017-03-15] MEDS: HYDROcodone/ACETAMIN 5-325 MG TAB (NORCO/ VICODIN) PO PRN ×2 (06:10→15:32)
[2017-03-15] MEDS: cloNIDine HCL 0.1 MG TABLET PO PRN (06:25)
[2017-03-15 06:57] LABS: CALCIUM 8.9 mg/dL (8.4-11.0); CHLORIDE 112 mmol/L (98-107); CREATININE 3.56 mg/dL (0.55-1.30); GLUCOSE 140 mg/dL (70-99); SODIUM SERUM 134 mmol/L (136-145); UREA NITROGEN, BLOOD 38 mg/dL (8-21)
[2017-03-15 07:03] LABS: GFR AFRICAN AMERICAN 17 mL/min (>90)
[2017-03-15 07:04] LABS: POTASSIUM 5.8 mmol/L (3.5-5.1)
[2017-03-15 07:41] LABS: ANION GAP < 3 (5-15)
[2017-03-15 08:00] VITALS: BP_SYST 144
[2017-03-15] MEDS ORDERED: SODIUM POLYSTYRENE SULFONATE 15 GM/60 ML UDBTL PO ONE (08:45)
[2017-03-15] MEDS: BACITRACIN/POLYMYXIN B SULFATE 30 GM TOPICAL OINT. TP SCH (09:09)
[2017-03-15] MEDS: ZIPRASIDONE HCL 20 MG CAPSULE (GEODON) PO SCH ×2 (09:09→21:09)
[2017-03-15] MEDS: PANTOPRAZOLE SODIUM 40 MG TAB PO SCH (09:09)
[2017-03-15] MEDS: amLODIPine BESYLATE 10 MG TABLET PO SCH (09:10)
[2017-03-15] MEDS: METOPROLOL TARTRATE 50 MG TABLET PO SCH ×2 (09:11→21:12)
[2017-03-15] MEDS: DIVALPROEX SODIUM 500 MG TAB.SR.24H (DEPAKOTE ER) PO SCH ×2 (09:11→21:09)
[2017-03-15 11:45] VITALS: BP_SYST 139
[2017-03-15] MEDS ORDERED: EPOETIN ALFA 10,000 UNITS/ML VIAL SUBCUT ONE (12:45)
[2017-03-15] MEDS: SOD FERRIC GLUC COMPLEX/SUC 125 MG in NS 100 ML IV SCH (14:44)
[2017-03-15 15:01] VITALS: BP_SYST 135
[2017-03-15 18:32] LABS: BASOPHILS # (AUTO) 0.1 K/uL (0.0-0.2); BASOPHILS % (AUTO) 0.7 % (0.0-2.0); EOSINOPHILS # (AUTO) 0.4 K/uL (0.0-0.4); EOSINOPHILS % (AUTO) 4.7 % (0.0-4.0); HEMOGLOBIN 8.2 g/dL (12.0-16.0); LYMPHOCYTES # (AUTO) 1.8 K/uL (1.0-5.5); MEAN CORPUSCULAR HEMOGLOBIN 28 pg (27-31); MEAN CORPUSCULAR HGB CONC 33 % (32-36); MEAN CORPUSCULAR VOLUME 87 fL (79.0-98.0); MONOCYTES # (AUTO) 0.5 K/uL (0.0-1.0); MONOCYTES % (AUTO) 6.5 % (1.7-9.3); NEUTROPHILS # (AUTO) 5.1 K/uL (1.8-7.7); NEUTROPHILS % (AUTO) 65.1 % (40.0-70.0); PLATELET COUNT (AUTO) 267 K/uL (130-430); RED BLOOD CELL COUNT(AUTO) 2.89 MIL/uL (4.2-6.2); RED CELL DISTRIBUTION WIDTH 13.7 % (9.0-15.0); WHITE BLOOD COUNT (AUTO) 7.9 K/uL (4.8-10.8)
[2017-03-15 18:37] LABS: CALCIUM 8.7 mg/dL (8.4-11.0); CREATININE 3.7 mg/dL (0.55-1.30); POTASSIUM 5.2 mmol/L (3.5-5.1)
[2017-03-15 19:44] VITALS: BP_SYST 149
[2017-03-15] MEDS: traZODone HCL 50 MG TABLET (DESYREL) PO SCH (21:09)
[2017-03-16] VITALS (7 sets, daily range): BP systolic 148–192
[2017-03-16] MEDS: HYDROcodone/ACETAMIN 5-325 MG TAB (NORCO/ VICODIN) PO PRN ×3 (05:23→19:00)
[2017-03-16 06:47] LABS: BASOPHILS % (AUTO) 0.6 % (0.0-2.0); EOSINOPHILS # (AUTO) 0.3 K/uL (0.0-0.4); EOSINOPHILS % (AUTO) 4.7 % (0.0-4.0); HEMATOCRIT 25.3 % (36-48); HEMOGLOBIN 7.9 g/dL (12.0-16.0); LYMPHOCYTES # (AUTO) 1.5 K/uL (1.0-5.5); LYMPHOCYTES % (AUTO) 22.1 % (20.5-51.5); MEAN CORPUSCULAR HEMOGLOBIN 28 pg (27-31); MEAN CORPUSCULAR HGB CONC 31 % (32-36); MEAN CORPUSCULAR VOLUME 88 fL (79.0-98.0); MONOCYTES # (AUTO) 0.4 K/uL (0.0-1.0); MONOCYTES % (AUTO) 5.9 % (1.7-9.3); NEUTROPHILS # (AUTO) 4.8 K/uL (1.8-7.7); NEUTROPHILS % (AUTO) 66.7 % (40.0-70.0); PLATELET COUNT (AUTO) 232 K/uL (130-430); RED BLOOD CELL COUNT(AUTO) 2.88 MIL/uL (4.2-6.2); RED CELL DISTRIBUTION WIDTH 13.4 % (9.0-15.0)
[2017-03-16 07:22] LABS: CALCIUM 9.3 mg/dL (8.4-11.0); POTASSIUM 5.5 mmol/L (3.5-5.1)
[2017-03-16 07:23] LABS: CREATININE 3.56 mg/dL (0.55-1.30)
[2017-03-16 07:38] LABS: ALBUMIN 3.2 g/dL (3.4-4.8); PHOSPHORUS 5.8 mg/dL (2.7-4.5); TOTAL BILIRUBIN 0.2 mg/dL (0.0-1.0); TOTAL PROTEIN, SERUM 6.3 g/dL (6.4-8.3)
[2017-03-16] MEDS: METOPROLOL TARTRATE 50 MG TABLET PO SCH ×2 (08:55→20:39)
[2017-03-16] MEDS: PANTOPRAZOLE SODIUM 40 MG TAB PO SCH (08:57)
[2017-03-16] MEDS: DIVALPROEX SODIUM 500 MG TAB.SR.24H (DEPAKOTE ER) PO SCH ×2 (08:57→20:38)
[2017-03-16] MEDS: amLODIPine BESYLATE 10 MG TABLET PO SCH (08:58)
[2017-03-16] MEDS: BACITRACIN/POLYMYXIN B SULFATE 30 GM TOPICAL OINT. TP SCH (08:58)
[2017-03-16] MEDS: ZIPRASIDONE HCL 20 MG CAPSULE (GEODON) PO SCH ×2 (09:51→20:57)
[2017-03-16] MEDS: SOD FERRIC GLUC COMPLEX/SUC 125 MG in NS 100 ML IV SCH (12:31)
[2017-03-16] MEDS ORDERED: SODIUM POLYSTYRENE SULFONATE 15 GM/60 ML UDBTL PO ONE (12:45)
[2017-03-16] MEDS ORDERED: EPOETIN ALFA 10,000 UNITS/ML VIAL SUBCUT ONE (13:30)
[2017-03-16] MEDS ORDERED: SODIUM POLYSTYRENE SULFONATE 15 GM/60 ML UDBTL RC ONE ×2 (15:45)
[2017-03-16] MEDS: traZODone HCL 50 MG TABLET (DESYREL) PO SCH (20:39)
[2017-03-16] MEDS: cloNIDine HCL 0.1 MG TABLET PO PRN (23:10)
[2017-03-16] MEDS: ACETAMINOPHEN 325 MG TABLET PO PRN (23:11)
[2017-03-16] MEDS ORDERED: LORazepam 1 MG TABLET PO ONE (23:55)
[2017-03-17] VITALS: BP_SYST 183
[2017-03-17 04:00] VITALS: BP_SYST 152
[2017-03-17 06:30] LABS: CALCIUM 8.7 mg/dL (8.4-11.0); CREATININE 3.84 mg/dL (0.55-1.30); POTASSIUM 5.1 mmol/L (3.5-5.1)
[2017-03-17 06:42] LABS: BASOPHILS % (AUTO) 0.6 % (0.0-2.0); EOSINOPHILS # (AUTO) 0.3 K/uL (0.0-0.4); HEMATOCRIT 23.8 % (36-48); HEMOGLOBIN 7.7 g/dL (12.0-16.0); LYMPHOCYTES # (AUTO) 1.8 K/uL (1.0-5.5); LYMPHOCYTES % (AUTO) 23.6 % (20.5-51.5); MEAN CORPUSCULAR HEMOGLOBIN 28 pg (27-31); MEAN CORPUSCULAR HGB CONC 32 % (32-36); MEAN CORPUSCULAR VOLUME 88 fL (79.0-98.0); MONOCYTES # (AUTO) 0.5 K/uL (0.0-1.0); MONOCYTES % (AUTO) 6.3 % (1.7-9.3); NEUTROPHILS # (AUTO) 5.1 K/uL (1.8-7.7); NEUTROPHILS % (AUTO) 65.5 % (40.0-70.0); PLATELET COUNT (AUTO) 283 K/uL (130-430); RED CELL DISTRIBUTION WIDTH 13.4 % (9.0-15.0); WHITE BLOOD COUNT (AUTO) 7.7 K/uL (4.8-10.8)
[2017-03-17 07:59] VITALS: BP_SYST 128
[2017-03-17] MEDS: ZIPRASIDONE HCL 20 MG CAPSULE (GEODON) PO SCH ×2 (09:17→20:52)
[2017-03-17] MEDS: PANTOPRAZOLE SODIUM 40 MG TAB PO SCH (09:17)
[2017-03-17] MEDS: amLODIPine BESYLATE 10 MG TABLET PO SCH (09:17)
[2017-03-17] MEDS: METOPROLOL TARTRATE 50 MG TABLET PO SCH ×2 (09:18→20:51)
[2017-03-17] MEDS: DIVALPROEX SODIUM 500 MG TAB.SR.24H (DEPAKOTE ER) PO SCH ×2 (09:18→20:52)
[2017-03-17] MEDS: BACITRACIN/POLYMYXIN B SULFATE 30 GM TOPICAL OINT. TP SCH (09:19)
[2017-03-17] MEDS: HYDROcodone/ACETAMIN 5-325 MG TAB (NORCO/ VICODIN) PO PRN ×2 (09:22→17:07)
[2017-03-17 11:50] VITALS: BP_SYST 140
[2017-03-17] MEDS: SOD FERRIC GLUC COMPLEX/SUC 125 MG in NS 100 ML IV SCH (12:40)
[2017-03-17 15:57] VITALS: BP_SYST 146
[2017-03-17 19:11] VITALS: BP_SYST 141
[2017-03-17] MEDS: traZODone HCL 50 MG TABLET (DESYREL) PO SCH (20:51)
[2017-03-18] MEDS: HYDROcodone/ACETAMIN 5-325 MG TAB (NORCO/ VICODIN) PO PRN ×4 (01:01→20:58)
[2017-03-18 01:05] VITALS: BP_SYST 134
[2017-03-18 06:34] LABS: CALCIUM 8.9 mg/dL (8.4-11.0); CREATININE 3.81 mg/dL (0.55-1.30); POTASSIUM 5.4 mmol/L (3.5-5.1)
[2017-03-18 06:42] LABS: BASOPHILS % (AUTO) 0.4 % (0.0-2.0); EOSINOPHILS # (AUTO) 0.3 K/uL (0.0-0.4); EOSINOPHILS % (AUTO) 3.3 % (0.0-4.0); HEMATOCRIT 25.4 % (36-48); HEMOGLOBIN 8.1 g/dL (12.0-16.0); LYMPHOCYTES # (AUTO) 1.7 K/uL (1.0-5.5); LYMPHOCYTES % (AUTO) 18.9 % (20.5-51.5); MEAN CORPUSCULAR HEMOGLOBIN 28 pg (27-31); MEAN CORPUSCULAR HGB CONC 32 % (32-36); MEAN CORPUSCULAR VOLUME 88 fL (79.0-98.0); MONOCYTES # (AUTO) 0.6 K/uL (0.0-1.0); MONOCYTES % (AUTO) 6.4 % (1.7-9.3); NEUTROPHILS # (AUTO) 6.4 K/uL (1.8-7.7); PLATELET COUNT (AUTO) 288 K/uL (130-430); RED BLOOD CELL COUNT(AUTO) 2.88 MIL/uL (4.2-6.2); RED CELL DISTRIBUTION WIDTH 13.4 % (9.0-15.0)
[2017-03-18 07:16] VITALS: BP_SYST 142
[2017-03-18] MEDS: ZIPRASIDONE HCL 20 MG CAPSULE (GEODON) PO SCH ×2 (08:31→21:00)
[2017-03-18] MEDS: DIVALPROEX SODIUM 500 MG TAB.SR.24H (DEPAKOTE ER) PO SCH ×2 (08:31→20:59)
[2017-03-18] MEDS: METOPROLOL TARTRATE 50 MG TABLET PO SCH ×2 (08:32→21:00)
[2017-03-18] MEDS: PANTOPRAZOLE SODIUM 40 MG TAB PO SCH (08:33)
[2017-03-18] MEDS: amLODIPine BESYLATE 10 MG TABLET PO SCH (08:33)
[2017-03-18] MEDS: BACITRACIN/POLYMYXIN B SULFATE 30 GM TOPICAL OINT. TP SCH (08:40)
[2017-03-18] MEDS ORDERED: SODIUM POLYSTYRENE SULFONATE 15 GM/60 ML UDBTL PO ONE (11:15)
[2017-03-18 12:00] VITALS: BP_SYST 158
[2017-03-18] MEDS: SOD FERRIC GLUC COMPLEX/SUC 125 MG in NS 100 ML IV SCH (12:45)
[2017-03-18] MEDS ORDERED: SPIRONOLACTONE 25 MG TABLET (ALDACTONE) PO ONE (14:15)
[2017-03-18 16:00] VITALS: BP_SYST 147
[2017-03-18 18:37] VITALS: BP_SYST 128
[2017-03-18 18:38] VITALS: BP_SYST 128
[2017-03-18] MEDS: traZODone HCL 50 MG TABLET (DESYREL) PO SCH (20:59)
[2017-03-18] MEDS: cloNIDine HCL 0.1 MG TABLET PO PRN (23:11)
[2017-03-19] VITALS (8 sets, daily range): BP systolic 140–207
[2017-03-19] MEDS: amLODIPine BESYLATE 10 MG TABLET PO SCH (08:14)
[2017-03-19] MEDS: PANTOPRAZOLE SODIUM 40 MG TAB PO SCH (08:15)
[2017-03-19] MEDS: METOPROLOL TARTRATE 50 MG TABLET PO SCH ×2 (08:15→22:00)
[2017-03-19] MEDS: DIVALPROEX SODIUM 500 MG TAB.SR.24H (DEPAKOTE ER) PO SCH ×2 (08:15→21:58)
[2017-03-19] MEDS: SPIRONOLACTONE 25 MG TABLET (ALDACTONE) PO SCH (08:15)
[2017-03-19] MEDS: BACITRACIN/POLYMYXIN B SULFATE 30 GM TOPICAL OINT. TP SCH (08:16)
[2017-03-19] MEDS: ZIPRASIDONE HCL 20 MG CAPSULE (GEODON) PO SCH ×2 (08:56→21:59)
[2017-03-19] MEDS: HYDROcodone/ACETAMIN 5-325 MG TAB (NORCO/ VICODIN) PO PRN ×2 (08:57→22:20)
[2017-03-19 10:10] LABS: CALCIUM 8.9 mg/dL (8.4-11.0); CREATININE 3.63 mg/dL (0.55-1.30); POTASSIUM 5.4 mmol/L (3.5-5.1)
[2017-03-19] MEDS ORDERED: SODIUM POLYSTYRENE SULFONATE 15 GM/60 ML UDBTL PO ONE (11:15)
[2017-03-19] MEDS: SOD FERRIC GLUC COMPLEX/SUC 125 MG in NS 100 ML IV SCH (12:45)
[2017-03-19] MEDS: cloNIDine HCL 0.1 MG TABLET PO PRN ×2 (16:29→22:01)
[2017-03-19] MEDS: traZODone HCL 50 MG TABLET (DESYREL) PO SCH (21:58)
[2017-03-19] MEDS: QUEtiapine FUMARATE 100 MG TABLET PO SCH (22:00)
[2017-03-19] MEDS: ACETAMINOPHEN 325 MG TABLET PO PRN (22:02)
[2017-03-19] MEDS ORDERED: LORazepam 1 MG TABLET PO ONE (22:45)
[2017-03-19] MEDS ORDERED: LevALBUTEROL HCL 1.25 MG/0.5 ML *CONC.* VIAL.NEB (XOPENEX CONC.) INH ONE (23:15)
[2017-03-20] VITALS (7 sets, daily range): BP systolic 108–161
[2017-03-20 07:20] LABS: CALCIUM 8.4 mg/dL (8.4-11.0); CREATININE 4.38 mg/dL (0.55-1.30)
[2017-03-20 07:49] LABS: POTASSIUM 5.8 mmol/L (3.5-5.1)
[2017-03-20] MEDS: DIVALPROEX SODIUM 500 MG TAB.SR.24H (DEPAKOTE ER) PO SCH ×2 (08:41→20:05)
[2017-03-20] MEDS: ZIPRASIDONE HCL 20 MG CAPSULE (GEODON) PO SCH ×2 (08:41→20:05)
[2017-03-20] MEDS: amLODIPine BESYLATE 10 MG TABLET PO SCH (08:42)
[2017-03-20] MEDS: METOPROLOL TARTRATE 50 MG TABLET PO SCH ×2 (08:42→20:04)
[2017-03-20] MEDS: PANTOPRAZOLE SODIUM 40 MG TAB PO SCH (08:42)
[2017-03-20] MEDS: SPIRONOLACTONE 25 MG TABLET (ALDACTONE) PO SCH (08:43)
[2017-03-20] MEDS: BACITRACIN/POLYMYXIN B SULFATE 30 GM TOPICAL OINT. TP SCH (09:00)
[2017-03-20] MEDS ORDERED: AMOXICILLIN/CLAVULANATE POTASSIUM 500 MG TABLET PO ONE (09:45)
[2017-03-20] MEDS: SOD FERRIC GLUC COMPLEX/SUC 125 MG in NS 100 ML IV SCH (12:01)
[2017-03-20] MEDS ORDERED: NACL 0.9% 1,000 ML IV SCH (12:44)
[2017-03-20] MEDS ORDERED: FUROSEMIDE 20 MG TABLET PO ONE (13:00)
[2017-03-20] MEDS: AMOXICILLIN/CLAVULANATE POTASSIUM 500 MG TABLET PO SCH ×2 (14:00→21:11)
[2017-03-20] MEDS: ACETAMINOPHEN 325 MG TABLET PO PRN (14:16)
[2017-03-20] MEDS: SODIUM POLYSTYRENE SULFONATE 15 GM/60 ML UDBTL PO ONE ×2 (14:23→14:48)
[2017-03-20] MEDS: HYDROcodone/ACETAMIN 5-325 MG TAB (NORCO/ VICODIN) PO PRN ×2 (15:22→20:04)
[2017-03-20] MEDS: ALBUTEROL SULFATE 0.083% 2.5 MG/3 ML VIAL.NEB INH SCH ×2 (15:48→23:47)
[2017-03-20 18:32] LABS: BILIRUBIN,URINE NEGATIVE (NEGATIVE); BLOOD, URINE 1+ (NEGATIVE); CLARITY/URINE HAZY (CLEAR); COLOR,URINE YELLOW (YELLOW); GLUCOSE,URINE NEGATIVE (NEGATIVE); KETONES,URINE NEGATIVE (NEGATIVE); LEUKOCYTE ESTERASE ,URINE 3+ (NEGATIVE); NITRITE, URINE NEGATIVE (NEGATIVE); PH,URINE 6.5 (5.0-8.0); PROTEIN URINE 2+ (NEGATIVE); UROBILINOGEN,URINE 0.2 (0.2-1.0)
[2017-03-20 18:47] LABS: BACTERIA,URINE FEW /HPF (None Seen); TRICHOMONAS,URINE Moderate /HPF (None Seen); WBC,URINE 50-80 /HPF (0-3)
[2017-03-20 18:48] LABS: MUCUS,URINE None Seen /LPF (None Seen)
[2017-03-20] MEDS: traZODone HCL 50 MG TABLET (DESYREL) PO SCH (20:05)
[2017-03-20] MEDS: QUEtiapine FUMARATE 100 MG TABLET PO SCH (20:05)
[2017-03-21 04:46] VITALS: BP_SYST 120
[2017-03-21] MEDS: AMOXICILLIN/CLAVULANATE POTASSIUM 500 MG TABLET PO SCH ×3 (05:20→21:29)
[2017-03-21 06:33] LABS: CALCIUM 8.6 mg/dL (8.4-11.0); CREATININE 4.77 mg/dL (0.55-1.30); POTASSIUM 5.3 mmol/L (3.5-5.1)
[2017-03-21 06:37] LABS: BASOPHILS % (AUTO) 0.4 % (0.0-2.0); EOSINOPHILS % (AUTO) 0.5 % (0.0-4.0); HEMATOCRIT 25.2 % (36-48); HEMOGLOBIN 8.1 g/dL (12.0-16.0); LYMPHOCYTES # (AUTO) 0.9 K/uL (1.0-5.5); LYMPHOCYTES % (AUTO) 10.9 % (20.5-51.5); MEAN CORPUSCULAR HEMOGLOBIN 29 pg (27-31); MEAN CORPUSCULAR HGB CONC 32 % (32-36); MEAN CORPUSCULAR VOLUME 89 fL (79.0-98.0); MONOCYTES # (AUTO) 0.6 K/uL (0.0-1.0); MONOCYTES % (AUTO) 6.7 % (1.7-9.3); NEUTROPHILS % (AUTO) 81.5 % (40.0-70.0); PLATELET COUNT (AUTO) 213 K/uL (130-430); RED BLOOD CELL COUNT(AUTO) 2.82 MIL/uL (4.2-6.2); RED CELL DISTRIBUTION WIDTH 15.8 % (9.0-15.0); WHITE BLOOD COUNT (AUTO) 8.5 K/uL (4.8-10.8)
[2017-03-21 07:38] VITALS: BP_SYST 156
[2017-03-21] MEDS: ACETAMINOPHEN 325 MG TABLET PO PRN (07:38)
[2017-03-21] MEDS: DIVALPROEX SODIUM 500 MG TAB.SR.24H (DEPAKOTE ER) PO SCH (08:47)
[2017-03-21] MEDS: METOPROLOL TARTRATE 50 MG TABLET PO SCH ×2 (08:48→21:31)
[2017-03-21] MEDS: PANTOPRAZOLE SODIUM 40 MG TAB PO SCH (08:49)
[2017-03-21] MEDS: amLODIPine BESYLATE 10 MG TABLET PO SCH (08:49)
[2017-03-21] MEDS: BACITRACIN/POLYMYXIN B SULFATE 30 GM TOPICAL OINT. TP SCH (08:51)
[2017-03-21] MEDS ORDERED: FUROSEMIDE 20 MG TABLET PO SCH (09:00)
[2017-03-21] MEDS: ALBUTEROL SULFATE 0.083% 2.5 MG/3 ML VIAL.NEB INH SCH ×3 (09:15→23:36)
[2017-03-21] MEDS: ZIPRASIDONE HCL 20 MG CAPSULE (GEODON) PO SCH ×2 (09:32→21:38)
[2017-03-21] MEDS: HYDROcodone/ACETAMIN 5-325 MG TAB (NORCO/ VICODIN) PO PRN (09:37)
[2017-03-21] MEDS: SOD FERRIC GLUC COMPLEX/SUC 125 MG in NS 100 ML IV SCH (11:57)
[2017-03-21 12:00] VITALS: BP_SYST 115
[2017-03-21 15:47] VITALS: BP_SYST 114
[2017-03-21 20:00] VITALS: BP_SYST 137
[2017-03-21] MEDS: traZODone HCL 50 MG TABLET (DESYREL) PO SCH (21:29)
[2017-03-21] MEDS: QUEtiapine FUMARATE 100 MG TABLET PO SCH (21:29)
[2017-03-21] MEDS: DIVALPROEX SODIUM 500 MG TABLET( DEPAKOTE) PO SCH (21:31)
[2017-03-22] VITALS: BP_SYST 126
[2017-03-22 00:03] VITALS: BP_SYST 94
[2017-03-22] MEDS: AMOXICILLIN/CLAVULANATE POTASSIUM 500 MG TABLET PO SCH ×4 (06:16→21:33)
[2017-03-22 07:13] LABS: CALCIUM 8.1 mg/dL (8.4-11.0); CREATININE 4.77 mg/dL (0.55-1.30); POTASSIUM 5.6 mmol/L (3.5-5.1)
[2017-03-22 08:04] VITALS: BP_SYST 110
[2017-03-22] MEDS: ALBUTEROL SULFATE 0.083% 2.5 MG/3 ML VIAL.NEB INH SCH ×3 (08:13→23:22)
[2017-03-22] MEDS: PANTOPRAZOLE SODIUM 40 MG TAB PO SCH (09:46)
[2017-03-22] MEDS: DIVALPROEX SODIUM 500 MG TAB.SR.24H (DEPAKOTE ER) PO SCH (09:46)
[2017-03-22] MEDS: amLODIPine BESYLATE 10 MG TABLET PO SCH (09:47)
[2017-03-22] MEDS: METOPROLOL TARTRATE 50 MG TABLET PO SCH ×2 (09:48→20:39)
[2017-03-22] MEDS: ZIPRASIDONE HCL 20 MG CAPSULE (GEODON) PO SCH ×2 (09:53→20:38)
[2017-03-22 12:01] VITALS: BP_SYST 104
[2017-03-22] MEDS: SOD FERRIC GLUC COMPLEX/SUC 125 MG in NS 100 ML IV SCH (12:45)
[2017-03-22] MEDS ORDERED: SODIUM POLYSTYRENE SULFONATE 15 GM/60 ML UDBTL RC ONE ×2 (13:45→14:00)
[2017-03-22] MEDS ORDERED: NEPHROVITE, (FOLIC ACID/VITAMIN B COMP W-C 1 TAB) PO ONE (14:00)
[2017-03-22 16:00] VITALS: BP_SYST 136
[2017-03-22] MEDS: BACITRACIN/POLYMYXIN B SULFATE 30 GM TOPICAL OINT. TP SCH (17:47)
[2017-03-22] MEDS: HYDROcodone/ACETAMIN 5-325 MG TAB (NORCO/ VICODIN) PO PRN (19:02)
[2017-03-22 19:43] VITALS: BP_SYST 127
[2017-03-22] MEDS: DIVALPROEX SODIUM 500 MG TABLET( DEPAKOTE) PO SCH (20:38)
[2017-03-22] MEDS: traZODone HCL 50 MG TABLET (DESYREL) PO SCH (20:39)
[2017-03-22] MEDS: QUEtiapine FUMARATE 100 MG TABLET PO SCH (20:39)
[2017-03-23 04:00] VITALS: BP_SYST 112
[2017-03-23] MEDS: AMOXICILLIN/CLAVULANATE POTASSIUM 500 MG TABLET PO SCH ×3 (06:16→22:14)
[2017-03-23] MEDS: ALBUTEROL SULFATE 0.083% 2.5 MG/3 ML VIAL.NEB INH SCH ×3 (07:37→23:35)
[2017-03-23 08:00] VITALS: BP_SYST 142
[2017-03-23] MEDS: BACITRACIN/POLYMYXIN B SULFATE 30 GM TOPICAL OINT. TP SCH (09:00)
[2017-03-23] MEDS: DIVALPROEX SODIUM 500 MG TAB.SR.24H (DEPAKOTE ER) PO SCH (10:07)
[2017-03-23] MEDS: ZIPRASIDONE HCL 20 MG CAPSULE (GEODON) PO SCH ×2 (10:08→21:05)
[2017-03-23] MEDS: METOPROLOL TARTRATE 50 MG TABLET PO SCH ×2 (10:09→21:04)
[2017-03-23] MEDS: PANTOPRAZOLE SODIUM 40 MG TAB PO SCH (10:09)
[2017-03-23] MEDS: NEPHROVITE, (FOLIC ACID/VITAMIN B COMP W-C 1 TAB) PO SCH (10:10)
[2017-03-23] MEDS: amLODIPine BESYLATE 10 MG TABLET PO SCH (10:10)
[2017-03-23] MEDS: HYDROcodone/ACETAMIN 5-325 MG TAB (NORCO/ VICODIN) PO PRN ×2 (10:22→16:54)
[2017-03-23 13:51] LABS: BASOPHILS % (AUTO) 0.4 % (0.0-2.0); EOSINOPHILS # (AUTO) 0.1 K/uL (0.0-0.4); HEMATOCRIT 24.4 % (36-48); HEMOGLOBIN 7.9 g/dL (12.0-16.0); LYMPHOCYTES # (AUTO) 0.9 K/uL (1.0-5.5); LYMPHOCYTES % (AUTO) 33.1 % (20.5-51.5); MEAN CORPUSCULAR HEMOGLOBIN 29 pg (27-31); MEAN CORPUSCULAR HGB CONC 33 % (32-36); MEAN CORPUSCULAR VOLUME 88 fL (79.0-98.0); MONOCYTES # (AUTO) 0.3 K/uL (0.0-1.0); NEUTROPHILS # (AUTO) 1.4 K/uL (1.8-7.7); PLATELET COUNT (AUTO) 158 K/uL (130-430); RED BLOOD CELL COUNT(AUTO) 2.77 MIL/uL (4.2-6.2); RED CELL DISTRIBUTION WIDTH 15.1 % (9.0-15.0); WHITE BLOOD COUNT (AUTO) 2.7 K/uL (4.8-10.8)
[2017-03-23 13:56] LABS: CALCIUM 8.2 mg/dL (8.4-11.0); CREATININE 4.53 mg/dL (0.55-1.30); POTASSIUM 5.5 mmol/L (3.5-5.1)
[2017-03-23 14:08] LABS: NEUTROPHILS % (AUTO) 51.5 % (40.0-70.0)
[2017-03-23 16:00] VITALS: BP_SYST 115
[2017-03-23] MEDS ORDERED: SODIUM POLYSTYRENE SULFONATE 15 GM/60 ML UDBTL RC ONE (16:00)
[2017-03-23] MEDS: traZODone HCL 50 MG TABLET (DESYREL) PO SCH (21:05)
[2017-03-23] MEDS: DIVALPROEX SODIUM 500 MG TABLET( DEPAKOTE) PO SCH (21:05)
[2017-03-23] MEDS: QUEtiapine FUMARATE 100 MG TABLET PO SCH (21:05)
[2017-03-24 00:15] VITALS: BP_SYST 127
[2017-03-24 04:25] VITALS: BP_SYST 124
[2017-03-24] MEDS: AMOXICILLIN/CLAVULANATE POTASSIUM 500 MG TABLET PO SCH ×3 (05:51→21:20)
[2017-03-24] MEDS: ALBUTEROL SULFATE 0.083% 2.5 MG/3 ML VIAL.NEB INH SCH ×3 (07:26→23:00)
[2017-03-24 08:00] VITALS: BP_SYST 150
[2017-03-24] MEDS: NEPHROVITE, (FOLIC ACID/VITAMIN B COMP W-C 1 TAB) PO SCH (10:04)
[2017-03-24] MEDS: PANTOPRAZOLE SODIUM 40 MG TAB PO SCH (10:04)
[2017-03-24] MEDS: DIVALPROEX SODIUM 500 MG TAB.SR.24H (DEPAKOTE ER) PO SCH (10:04)
[2017-03-24] MEDS: amLODIPine BESYLATE 10 MG TABLET PO SCH (10:05)
[2017-03-24] MEDS: ZIPRASIDONE HCL 20 MG CAPSULE (GEODON) PO SCH ×2 (10:05→21:18)
[2017-03-24] MEDS: METOPROLOL TARTRATE 50 MG TABLET PO SCH ×2 (10:06→21:19)
[2017-03-24 10:22] LABS: CALCIUM 8.2 mg/dL (8.4-11.0); CREATININE 4.65 mg/dL (0.55-1.30); POTASSIUM 5.4 mmol/L (3.5-5.1)
[2017-03-24] MEDS: BACITRACIN/POLYMYXIN B SULFATE 30 GM TOPICAL OINT. TP SCH (10:23)
[2017-03-24] MEDS ORDERED: SODIUM POLYSTYRENE SULFONATE 15 GM/60 ML UDBTL RC ONE (11:30)
[2017-03-24 12:00] VITALS: BP_SYST 152
[2017-03-24] MEDS: HYDROcodone/ACETAMIN 5-325 MG TAB (NORCO/ VICODIN) PO PRN (21:16)
[2017-03-24] MEDS: traZODone HCL 50 MG TABLET (DESYREL) PO SCH (21:17)
[2017-03-24] MEDS: QUEtiapine FUMARATE 100 MG TABLET PO SCH (21:17)
[2017-03-24] MEDS: DIVALPROEX SODIUM 500 MG TABLET( DEPAKOTE) PO SCH (21:18)
[2017-03-24] MEDS ORDERED: SODIUM POLYSTYRENE SULFONATE 15 GM/60 ML UDBTL ONE (21:30)
[2017-03-25 00:06] VITALS: BP_SYST 119
[2017-03-25 04:17] VITALS: BP_SYST 113; BP_SYST 128
[2017-03-25] MEDS: ALBUTEROL SULFATE 0.083% 2.5 MG/3 ML VIAL.NEB INH SCH ×3 (07:16→23:00)
[2017-03-25 07:37] LABS: MEAN CORPUSCULAR HEMOGLOBIN 28 pg (27-31)
[2017-03-25 07:41] LABS: CALCIUM 8.1 mg/dL (8.4-11.0); CREATININE 4.46 mg/dL (0.55-1.30); POTASSIUM 5.5 mmol/L (3.5-5.1)
[2017-03-25 07:56] LABS: BASOPHILS % (AUTO) 0.2 % (0.0-2.0); EOSINOPHILS # (AUTO) 0.2 K/uL (0.0-0.4); EOSINOPHILS % (AUTO) 9.8 % (0.0-4.0); HEMATOCRIT 22.6 % (36-48); HEMOGLOBIN 7.2 g/dL (12.0-16.0); LYMPHOCYTES # (AUTO) 1.2 K/uL (1.0-5.5); LYMPHOCYTES % (AUTO) 52.9 % (20.5-51.5); MEAN CORPUSCULAR HGB CONC 32 % (32-36); MEAN CORPUSCULAR VOLUME 89 fL (79.0-98.0); MONOCYTES # (AUTO) 0.2 K/uL (0.0-1.0); MONOCYTES % (AUTO) 8.2 % (1.7-9.3); NEUTROPHILS % (AUTO) 28.9 % (40.0-70.0); PLATELET COUNT (AUTO) 131 K/uL (130-430); RED BLOOD CELL COUNT(AUTO) 2.54 MIL/uL (4.2-6.2); RED CELL DISTRIBUTION WIDTH 15.6 % (9.0-15.0); WHITE BLOOD COUNT (AUTO) 2.3 K/uL (4.8-10.8)
[2017-03-25 07:58] LABS: NEUTROPHILS # (AUTO) 0.7 K/uL (1.8-7.7)
[2017-03-25] MEDS: BACITRACIN/POLYMYXIN B SULFATE 30 GM TOPICAL OINT. TP SCH (09:00)
[2017-03-25] MEDS: DIVALPROEX SODIUM 500 MG TAB.SR.24H (DEPAKOTE ER) PO SCH (09:41)
[2017-03-25] MEDS: NEPHROVITE, (FOLIC ACID/VITAMIN B COMP W-C 1 TAB) PO SCH (09:41)
[2017-03-25] MEDS: amLODIPine BESYLATE 10 MG TABLET PO SCH (09:42)
[2017-03-25] MEDS: ZIPRASIDONE HCL 20 MG CAPSULE (GEODON) PO SCH ×2 (09:42→21:09)
[2017-03-25] MEDS: PANTOPRAZOLE SODIUM 40 MG TAB PO SCH (09:43)
[2017-03-25] MEDS: METOPROLOL TARTRATE 50 MG TABLET PO SCH ×2 (09:43→21:09)
[2017-03-25 09:45] VITALS: BP_SYST 103
[2017-03-25] MEDS: AMOXICILLIN/CLAVULANATE POTASSIUM 500 MG TABLET PO SCH ×2 (14:22→21:08)
[2017-03-25 16:49] VITALS: BP_SYST 146
[2017-03-25] MEDS ORDERED: SODIUM POLYSTYRENE SULFONATE 15 GM/60 ML UDBTL RC ONE (18:00)
[2017-03-25] MEDS: HYDROcodone/ACETAMIN 5-325 MG TAB (NORCO/ VICODIN) PO PRN (18:39)
[2017-03-25 19:28] VITALS: BP_SYST 126
[2017-03-25] MEDS: traZODone HCL 50 MG TABLET (DESYREL) PO SCH (21:09)
[2017-03-25] MEDS: QUEtiapine FUMARATE 100 MG TABLET PO SCH (21:09)
[2017-03-25] MEDS: DIVALPROEX SODIUM 500 MG TABLET( DEPAKOTE) PO SCH (21:09)
[2017-03-26 04:00] VITALS: BP_SYST 133
[2017-03-26] MEDS: AMOXICILLIN/CLAVULANATE POTASSIUM 500 MG TABLET PO SCH (05:38)
[2017-03-26] MEDS: ALBUTEROL SULFATE 0.083% 2.5 MG/3 ML VIAL.NEB INH SCH ×3 (07:16→23:30)
[2017-03-26 07:30] LABS: EOSINOPHILS # (AUTO) 0.2 K/uL (0.0-0.4); LYMPHOCYTES # (AUTO) 1.1 K/uL (1.0-5.5); MONOCYTES # (AUTO) 0.2 K/uL (0.0-1.0)
[2017-03-26 07:31] LABS: CALCIUM 8.3 mg/dL (8.4-11.0); CREATININE 4.49 mg/dL (0.55-1.30); POTASSIUM 5.6 mmol/L (3.5-5.1)
[2017-03-26 07:34] VITALS: BP_SYST 117
[2017-03-26 07:44] LABS: BASOPHILS % (AUTO) 0.3 % (0.0-2.0); EOSINOPHILS % (AUTO) 7.6 % (0.0-4.0); HEMATOCRIT 25.1 % (36-48); HEMOGLOBIN 7.9 g/dL (12.0-16.0); LYMPHOCYTES % (AUTO) 52.8 % (20.5-51.5); MEAN CORPUSCULAR HEMOGLOBIN 28 pg (27-31); MEAN CORPUSCULAR HGB CONC 32 % (32-36); MEAN CORPUSCULAR VOLUME 89 fL (79.0-98.0); MONOCYTES % (AUTO) 6.7 % (1.7-9.3); NEUTROPHILS % (AUTO) 32.6 % (40.0-70.0); PLATELET COUNT (AUTO) 134 K/uL (130-430); RED BLOOD CELL COUNT(AUTO) 2.82 MIL/uL (4.2-6.2); RED CELL DISTRIBUTION WIDTH 15.4 % (9.0-15.0); WHITE BLOOD COUNT (AUTO) 2.2 K/uL (4.8-10.8)
[2017-03-26 07:45] LABS: NEUTROPHILS # (AUTO) 0.7 K/uL (1.8-7.7)
[2017-03-26] MEDS: PANTOPRAZOLE SODIUM 40 MG TAB PO SCH (08:19)
[2017-03-26] MEDS: DIVALPROEX SODIUM 500 MG TAB.SR.24H (DEPAKOTE ER) PO SCH (08:19)
[2017-03-26] MEDS: METOPROLOL TARTRATE 50 MG TABLET PO SCH ×2 (08:20→21:00)
[2017-03-26] MEDS: NEPHROVITE, (FOLIC ACID/VITAMIN B COMP W-C 1 TAB) PO SCH (08:20)
[2017-03-26] MEDS: HYDROcodone/ACETAMIN 5-325 MG TAB (NORCO/ VICODIN) PO PRN ×2 (08:21→23:02)
[2017-03-26] MEDS: amLODIPine BESYLATE 10 MG TABLET PO SCH (08:21)
[2017-03-26] MEDS: BACITRACIN/POLYMYXIN B SULFATE 30 GM TOPICAL OINT. TP SCH (08:27)
[2017-03-26] MEDS: ZIPRASIDONE HCL 20 MG CAPSULE (GEODON) PO SCH ×2 (10:12→21:00)
[2017-03-26] MEDS ORDERED: FUROSEMIDE 20 MG TABLET PO ONE (10:45)
[2017-03-26 12:04] VITALS: BP_SYST 125
[2017-03-26] MEDS ORDERED: BISACODYL 10 MG/SUPPOSITORY RC ONE (15:00)
[2017-03-26 16:26] VITALS: BP_SYST 152
[2017-03-26 17:17] VITALS: BP_SYST 152
[2017-03-26] MEDS: EPOETIN ALFA 10,000 UNITS/ML VIAL SUBCUT SCH (18:14)
[2017-03-26 19:35] VITALS: BP_SYST 137
[2017-03-26] MEDS: traZODone HCL 50 MG TABLET (DESYREL) PO SCH (20:59)
[2017-03-26] MEDS: DOCUSATE SODIUM 250 MG CAPSULE PO SCH (20:59)
[2017-03-26] MEDS: DIVALPROEX SODIUM 500 MG TABLET( DEPAKOTE) PO SCH (20:59)
[2017-03-26] MEDS: QUEtiapine FUMARATE 100 MG TABLET PO SCH (21:00)
[2017-03-27 00:02] VITALS: BP_SYST 134
[2017-03-27] MEDS ORDERED: LORazepam 1 MG TABLET PO ONE (01:30)
[2017-03-27 04:06] VITALS: BP_SYST 129
[2017-03-27] MEDS: ALBUTEROL SULFATE 0.083% 2.5 MG/3 ML VIAL.NEB INH SCH ×2 (07:51→16:13)
[2017-03-27 07:57] VITALS: BP_SYST 151
[2017-03-27] MEDS: PANTOPRAZOLE SODIUM 40 MG TAB PO SCH (09:54)
[2017-03-27] MEDS: METOPROLOL TARTRATE 50 MG TABLET PO SCH ×2 (09:55→21:55)
[2017-03-27] MEDS: NEPHROVITE, (FOLIC ACID/VITAMIN B COMP W-C 1 TAB) PO SCH (09:55)
[2017-03-27] MEDS: amLODIPine BESYLATE 10 MG TABLET PO SCH (09:55)
[2017-03-27] MEDS: ZIPRASIDONE HCL 20 MG CAPSULE (GEODON) PO SCH ×2 (09:56→21:59)
[2017-03-27] MEDS: DOCUSATE SODIUM 250 MG CAPSULE PO SCH ×2 (09:56→22:01)
[2017-03-27] MEDS: FUROSEMIDE 20 MG TABLET PO SCH (09:56)
[2017-03-27] MEDS: DIVALPROEX SODIUM 500 MG TAB.SR.24H (DEPAKOTE ER) PO SCH (10:13)
[2017-03-27 12:50] VITALS: BP_SYST 154
[2017-03-27 16:00] VITALS: BP_SYST 141
[2017-03-27 20:19] VITALS: BP_SYST 141
[2017-03-27] MEDS: DIVALPROEX SODIUM 500 MG TABLET( DEPAKOTE) PO SCH (21:57)
[2017-03-27] MEDS: traZODone HCL 50 MG TABLET (DESYREL) PO SCH (22:00)
[2017-03-27] MEDS: QUEtiapine FUMARATE 100 MG TABLET PO SCH (22:01)
[2017-03-28] VITALS (7 sets, daily range): BP systolic 106–159
[2017-03-28 07:02] LABS: CALCIUM 8.7 mg/dL (8.4-11.0); CREATININE 4.49 mg/dL (0.55-1.30); POTASSIUM 5.7 mmol/L (3.5-5.1)
[2017-03-28] MEDS: ALBUTEROL SULFATE 0.083% 2.5 MG/3 ML VIAL.NEB INH SCH ×2 (07:40→15:35)
[2017-03-28] MEDS: FUROSEMIDE 20 MG TABLET PO SCH (09:00)
[2017-03-28] MEDS: PANTOPRAZOLE SODIUM 40 MG TAB PO SCH (09:00)
[2017-03-28] MEDS: DOCUSATE SODIUM 250 MG CAPSULE PO SCH ×2 (09:00→21:36)
[2017-03-28] MEDS: NEPHROVITE, (FOLIC ACID/VITAMIN B COMP W-C 1 TAB) PO SCH (09:00)
[2017-03-28] MEDS: ZIPRASIDONE HCL 20 MG CAPSULE (GEODON) PO SCH ×2 (09:00→21:36)
[2017-03-28] MEDS: amLODIPine BESYLATE 10 MG TABLET PO SCH (09:00)
[2017-03-28] MEDS: DIVALPROEX SODIUM 500 MG TAB.SR.24H (DEPAKOTE ER) PO SCH (09:00)
[2017-03-28] MEDS: METOPROLOL TARTRATE 50 MG TABLET PO SCH ×2 (09:00→21:35)
[2017-03-28] MEDS ORDERED: SODIUM POLYSTYRENE SULFONATE 15 GM/60 ML UDBTL PO ONE (16:00)
[2017-03-28] MEDS ORDERED: SODIUM POLYSTYRENE SULFONATE 15 GM/60 ML UDBTL RC ONE (16:15)
[2017-03-28] MEDS: EPOETIN ALFA 10,000 UNITS/ML VIAL SUBCUT SCH (18:50)
[2017-03-28] MEDS: QUEtiapine FUMARATE 100 MG TABLET PO SCH (21:35)
[2017-03-28] MEDS: traZODone HCL 50 MG TABLET (DESYREL) PO SCH (21:36)
[2017-03-28] MEDS: DIVALPROEX SODIUM 500 MG TABLET( DEPAKOTE) PO SCH (21:36)
[2017-03-29 06:40] LABS: CREATININE 4.73 mg/dL (0.55-1.30); POTASSIUM 5.5 mmol/L (3.5-5.1)
[2017-03-29] MEDS: ALBUTEROL SULFATE 0.083% 2.5 MG/3 ML VIAL.NEB INH SCH (07:00)
[2017-03-29 08:37] VITALS: BP_SYST 135
[2017-03-29] MEDS: ZIPRASIDONE HCL 20 MG CAPSULE (GEODON) PO SCH ×2 (10:17→21:09)
[2017-03-29] MEDS: PANTOPRAZOLE SODIUM 40 MG TAB PO SCH (10:17)
[2017-03-29] MEDS: DOCUSATE SODIUM 250 MG CAPSULE PO SCH ×2 (10:18→21:08)
[2017-03-29] MEDS: METOPROLOL TARTRATE 50 MG TABLET PO SCH ×2 (10:18→21:10)
[2017-03-29] MEDS: NEPHROVITE, (FOLIC ACID/VITAMIN B COMP W-C 1 TAB) PO SCH (10:19)
[2017-03-29] MEDS: amLODIPine BESYLATE 10 MG TABLET PO SCH (10:19)
[2017-03-29] MEDS: FUROSEMIDE 20 MG TABLET PO SCH (10:20)
[2017-03-29] MEDS: DIVALPROEX SODIUM 500 MG TAB.SR.24H (DEPAKOTE ER) PO SCH (10:36)
[2017-03-29] MEDS: HYDROcodone/ACETAMIN 5-325 MG TAB (NORCO/ VICODIN) PO PRN ×2 (10:37→19:03)
[2017-03-29] MEDS ORDERED: SODIUM POLYSTYRENE SULFONATE 15 GM/60 ML UDBTL PO ONE (10:45)
[2017-03-29 11:32] VITALS: BP_SYST 147
[2017-03-29] MEDS ORDERED: ALBUTEROL SULFATE 0.083% 2.5 MG/3 ML VIAL.NEB INH PRN (15:00)
[2017-03-29 15:27] VITALS: BP_SYST 148
[2017-03-29 16:59] VITALS: BP_SYST 148
[2017-03-29 19:40] VITALS: BP_SYST 146
[2017-03-29] MEDS: QUEtiapine FUMARATE 100 MG TABLET PO SCH (21:09)
[2017-03-29] MEDS: DIVALPROEX SODIUM 500 MG TABLET( DEPAKOTE) PO SCH (21:11)
[2017-03-29] MEDS: traZODone HCL 50 MG TABLET (DESYREL) PO SCH (21:25)
[2017-03-30] VITALS: BP_SYST 137
[2017-03-30 06:00] VITALS: BP_SYST 131
[2017-03-30] MEDS: HYDROcodone/ACETAMIN 5-325 MG TAB (NORCO/ VICODIN) PO PRN ×2 (06:52→19:14)
[2017-03-30 07:03] LABS: BASOPHILS % (AUTO) 0.7 % (0.0-2.0); EOSINOPHILS # (AUTO) 0.2 K/uL (0.0-0.4); EOSINOPHILS % (AUTO) 4.9 % (0.0-4.0); HEMATOCRIT 29.2 % (36-48); HEMOGLOBIN 9.4 g/dL (12.0-16.0); LYMPHOCYTES # (AUTO) 1.4 K/uL (1.0-5.5); LYMPHOCYTES % (AUTO) 45.6 % (20.5-51.5); MEAN CORPUSCULAR HEMOGLOBIN 28 pg (27-31); MEAN CORPUSCULAR HGB CONC 32 % (32-36); MEAN CORPUSCULAR VOLUME 88 fL (79.0-98.0); MONOCYTES # (AUTO) 0.3 K/uL (0.0-1.0); MONOCYTES % (AUTO) 8.9 % (1.7-9.3); NEUTROPHILS # (AUTO) 1.3 K/uL (1.8-7.7); NEUTROPHILS % (AUTO) 39.9 % (40.0-70.0); PLATELET COUNT (AUTO) 193 K/uL (130-430); RED BLOOD CELL COUNT(AUTO) 3.32 MIL/uL (4.2-6.2); WHITE BLOOD COUNT (AUTO) 3.2 K/uL (4.8-10.8)
[2017-03-30 07:26] LABS: CALCIUM 9.2 mg/dL (8.4-11.0); CREATININE 4.86 mg/dL (0.55-1.30); POTASSIUM 4.8 mmol/L (3.5-5.1)
[2017-03-30 08:08] VITALS: BP_SYST 123
[2017-03-30] MEDS: SODIUM POLYSTYRENE SULFONATE 15 GM/60 ML UDBTL PO SCH (08:46)
[2017-03-30] MEDS: FUROSEMIDE 20 MG TABLET PO SCH (08:47)
[2017-03-30] MEDS: DIVALPROEX SODIUM 500 MG TAB.SR.24H (DEPAKOTE ER) PO SCH (08:47)
[2017-03-30] MEDS: DOCUSATE SODIUM 250 MG CAPSULE PO SCH ×2 (08:54→21:20)
[2017-03-30] MEDS: ZIPRASIDONE HCL 20 MG CAPSULE (GEODON) PO SCH ×2 (08:55→21:20)
[2017-03-30] MEDS: NEPHROVITE, (FOLIC ACID/VITAMIN B COMP W-C 1 TAB) PO SCH (08:55)
[2017-03-30] MEDS: amLODIPine BESYLATE 10 MG TABLET PO SCH (08:56)
[2017-03-30] MEDS: METOPROLOL TARTRATE 50 MG TABLET PO SCH ×2 (08:57→21:21)
[2017-03-30] MEDS: PANTOPRAZOLE SODIUM 40 MG TAB PO SCH (08:57)
[2017-03-30 12:25] VITALS: BP_SYST 126
[2017-03-30 16:22] VITALS: BP_SYST 124
[2017-03-30 19:40] VITALS: BP_SYST 115
[2017-03-30] MEDS: traZODone HCL 50 MG TABLET (DESYREL) PO SCH (21:20)
[2017-03-30] MEDS: QUEtiapine FUMARATE 100 MG TABLET PO SCH (21:21)
[2017-03-30] MEDS: DIVALPROEX SODIUM 500 MG TABLET( DEPAKOTE) PO SCH (21:21)
[2017-03-31 04:36] VITALS: BP_SYST 114
[2017-03-31 08:31] VITALS: BP_SYST 139
[2017-03-31] MEDS: DOCUSATE SODIUM 250 MG CAPSULE PO SCH ×2 (08:59→20:58)
[2017-03-31] MEDS: amLODIPine BESYLATE 10 MG TABLET PO SCH (09:00)
[2017-03-31] MEDS: SODIUM POLYSTYRENE SULFONATE 15 GM/60 ML UDBTL PO SCH (09:00)
[2017-03-31] MEDS: NEPHROVITE, (FOLIC ACID/VITAMIN B COMP W-C 1 TAB) PO SCH (09:01)
[2017-03-31] MEDS: PANTOPRAZOLE SODIUM 40 MG TAB PO SCH (09:01)
[2017-03-31] MEDS: ZIPRASIDONE HCL 20 MG CAPSULE (GEODON) PO SCH ×2 (09:01→21:00)
[2017-03-31] MEDS: FUROSEMIDE 20 MG TABLET PO SCH (09:02)
[2017-03-31] MEDS: DIVALPROEX SODIUM 500 MG TAB.SR.24H (DEPAKOTE ER) PO SCH (09:02)
[2017-03-31] MEDS: METOPROLOL TARTRATE 50 MG TABLET PO SCH ×2 (09:05→21:00)
[2017-03-31] MEDS: HYDROcodone/ACETAMIN 5-325 MG TAB (NORCO/ VICODIN) PO PRN ×3 (09:10→21:40)
[2017-03-31 11:49] VITALS: BP_SYST 126
[2017-03-31 16:21] VITALS: BP_SYST 142
[2017-03-31] MEDS: EPOETIN ALFA 10,000 UNITS/ML VIAL SUBCUT SCH (17:00)
[2017-03-31 20:12] VITALS: BP_SYST 132
[2017-03-31] MEDS: DIVALPROEX SODIUM 500 MG TABLET( DEPAKOTE) PO SCH (20:59)
[2017-03-31] MEDS: traZODone HCL 50 MG TABLET (DESYREL) PO SCH (20:59)
[2017-03-31] MEDS: QUEtiapine FUMARATE 100 MG TABLET PO SCH (21:00)
[2017-04-01] VITALS: BP_SYST 130
[2017-04-01 04:00] VITALS: BP_SYST 127
[2017-04-01 06:16] LABS: CALCIUM 8.8 mg/dL (8.4-11.0); CREATININE 5.06 mg/dL (0.55-1.30); POTASSIUM 5.3 mmol/L (3.5-5.1)
[2017-04-01 06:24] LABS: HEMATOCRIT 29.6 % (36-48); HEMOGLOBIN 9.5 g/dL (12.0-16.0); MEAN CORPUSCULAR HEMOGLOBIN 29 pg (27-31); MEAN CORPUSCULAR HGB CONC 32 % (32-36); MEAN CORPUSCULAR VOLUME 90 fL (79.0-98.0); PLATELET COUNT (AUTO) 270 K/uL (130-430); RED BLOOD CELL COUNT(AUTO) 3.29 MIL/uL (4.2-6.2); RED CELL DISTRIBUTION WIDTH 15.4 % (9.0-15.0); WHITE BLOOD COUNT (AUTO) 3.5 K/uL (4.8-10.8)
[2017-04-01] MEDS: HYDROcodone/ACETAMIN 5-325 MG TAB (NORCO/ VICODIN) PO PRN (06:29)
[2017-04-01 08:40] LABS: ATYPICAL LYMPHOCYTES % 0 % (0-0); BAND % (MANUAL) 0 % (0-6); BASOPHILS % (MANUAL) 0 % (0-2); EOSINOPHILS % (MANUAL) 6 % (0-7); LYMPHOCYTES % (MANUAL) 50 % (20-46); MONOCYTES % (MANUAL) 14 % (0-11)
[2017-04-01 08:56] VITALS: BP_SYST 125
[2017-04-01] MEDS: SODIUM POLYSTYRENE SULFONATE 15 GM/60 ML UDBTL PO SCH ×2 (09:00→10:32)
[2017-04-01] MEDS: PANTOPRAZOLE SODIUM 40 MG TAB PO SCH (09:11)
[2017-04-01] MEDS: DOCUSATE SODIUM 250 MG CAPSULE PO SCH (09:12)
[2017-04-01] MEDS: NEPHROVITE, (FOLIC ACID/VITAMIN B COMP W-C 1 TAB) PO SCH (09:12)
[2017-04-01] MEDS: FUROSEMIDE 20 MG TABLET PO SCH (09:12)
[2017-04-01] MEDS: DIVALPROEX SODIUM 500 MG TAB.SR.24H (DEPAKOTE ER) PO SCH (09:12)
[2017-04-01] MEDS: amLODIPine BESYLATE 10 MG TABLET PO SCH (09:14)
[2017-04-01] MEDS: METOPROLOL TARTRATE 50 MG TABLET PO SCH (09:14)
[2017-04-01] MEDS: ZIPRASIDONE HCL 20 MG CAPSULE (GEODON) PO SCH (09:19)
[2017-04-01] MEDS ORDERED: COMMUNICATION ORDER XX ONE (10:45)
[2017-04-01 12:45] VITALS: BP_SYST 156
[2017-04-01] MEDS ORDERED: KAY15 PO (12:45)
[2017-04-01] MEDS ORDERED: FAMO20TA8 PO (12:46)
[2017-04-01] MEDS ORDERED: QUET200T PO (12:46)
[2017-04-01] MEDS ORDERED: HYDR-1189 PO (12:46)
[2017-04-01 15:39] VITALS: BP_SYST 108
== END 2017-04-01 16:00 | disposition home or self-care (01) | DRG 52 ==
LOC: SED 20:05 → STU 23:50 → SMU 03-16 15:14
PROVIDERS: ADMIT Internal Medicine; ATTEND Internal Medicine
DX: G93.41 Metabolic encephalopathy (principal); N17.0 Acute kidney failure with tubular necrosis; I50.9 Heart failure, unspecified; I13.0 Hypertensive heart and chronic kidney disease with heart failure and stage 1 through stage 4 chronic kidney disease, or unspecified chronic kidney disease; E87.5 Hyperkalemia; R40.4 Transient alteration of awareness; N18.4 Chronic kidney disease, stage 4 (severe); R41.0 Disorientation, unspecified; R47.81 Slurred speech; J20.9 Acute bronchitis, unspecified; D63.1 Anemia in chronic kidney disease; G47.00 Insomnia, unspecified; F29 Unspecified psychosis not due to a substance or known physiological condition; F25.9 Schizoaffective disorder, unspecified; F15.10 Other stimulant abuse, uncomplicated; F31.60 Bipolar disorder, current episode mixed, unspecified; I25.10 Atherosclerotic heart disease of native coronary artery without angina pectoris; I25.2 Old myocardial infarction; Z86.73 Personal history of transient ischemic attack (TIA), and cerebral infarction without residual deficits; Z87.891 Personal history of nicotine dependence; Z90.49 Acquired absence of other specified parts of digestive tract; Z79.899 Other long term (current) drug therapy; Z91.19 Patient's noncompliance with other medical treatment and regimen
CPT/HCPCS: 36415; 70450-TC; 71010; 73140-TC; 76770; 80048; 80053; 80164-TC; 80307; 81000-TC; 82550-TC; 82553-TC; 82607; 82746; 83540-TC; 83550-TC; 84100-TC; 84443-TC; 84484; 85007; 85025; 85027; 85610-TC; 85730-TC; 86886; 86900; 86901; 86920; 87086; 93005; 94640; 94760; 96372; 96374; 96375; 97110-GP; 97116-GP; 97530-GP; 99285; G0480; G0481; G0482; J0610; J0885; J1815; J2270; J2405; J2916; J7030; J7050